=== PATIENT | female | born 1980 | race Caucasian/White ===

== ENCOUNTER 2021-01-21 03:22 | Outpatient (CLI) | payer BC, SELFPAY ==
[2021-01-21 12:09] LABS: HGB 13.6 g/dL (11.2-15.7); MCH 31.8 pg (27.0-33.0); MCHC 33.2 % (32.0-36.0); MCV 95.8 fL (80-95); MPV 10.4 fL (8.0-11.0); Platelet Count 166 10^3/uL (130-400); RBC 4.28 10^6/uL (3.93-5.22); RDW 12.2 % (11.7-14.6); RDW-SD 42.3 fL; WBC 3.55 10^3/uL (4.4-10.8)
[2021-01-21 12:34] LABS: Anion Gap 5.3 mmol/L (3-11); BUN 10 mg/dL (7-18); CO2 31.7 mmol/L (21.0-32.0); CREATININE 0.8 mg/dL (0.55-1.02); Calcium 9.2 mg/dL (8.5-10.1); Calculated LDL 90 mg/dL (<100); Chloride 103 mmol/L (98-107); Cholesterol 161 mg/dL (<200); Glucose 92 mg/dL (74-106); HDL Cholesterol 62 mg/dL (40-60); Sodium 140 mmol/L (136-145); TSH (W/Ref FT4) 2.54 uIU/mL (0.36-3.74); Triglyceride 49 mg/dL (<150)
== END 2021-01-21 03:23 | disposition home or self-care (01) ==
LOC: LOS 03:23
PROVIDERS: PCP Nurse Practitioner Family; Visit Provider Nurse Practitioner Family
DX: Z00.00 Encounter for general adult medical examination without abnormal findings (principal); D53.9 Nutritional anemia, unspecified
CPT/HCPCS: 36415; 80048; 80061; 85027; 84443

== ENCOUNTER 2021-05-03 10:13 | Outpatient (REF) | payer BC, SELFPAY ==
--- NOTE | 2021-05-03 09:25 | PAPFT_PTH ---
PATIENT: Elizabeth Elder LOC: [facility] U#:[id number] AGE/SX: 40/F ROOM: RE05/03/[address]: RIVKA Prater : 1980 BED: DIS: 05/03/2021 SPEC #: [id number] RECD: 05/03/21 12:52 STATUS: LALY MOTA #: [id number] RUFUS: 05/03/21 09:[address]: Kelli Manzano DEPT: [facility] Cytology RECD BY: Suma Andres ENTERED: 05/03/21 12:52 SP TYPE: PAPFT MARCO ANTONIO DR: RIVKA Dow Tissues: 1 - CX/ENDOCX FOR PAP SMEARS Procedures: PAP THIN PREP/UVM Screening HPV DNA PROBE Comments: [id number]
== END 2021-05-03 10:14 | disposition home or self-care (01) ==
LOC: LBN 10:13
PROVIDERS: PCP Nurse Practitioner Family; Visit Provider Nurse Practitioner Family
DX: Z12.4 Encounter for screening for malignant neoplasm of cervix (principal); Z11.51 Encounter for screening for human papillomavirus (HPV)
CPT/HCPCS: 88142; 87624

== ENCOUNTER 2021-05-13 19:06 | Outpatient (REF) | payer BC, SELFPAY ==
[2021-05-13 21:27] LABS: HGB 12.3 g/dL (11.2-15.7); MCH 31.3 pg (27.0-33.0); MCHC 33.2 % (32.0-36.0); MCV 94.1 fL (80-95); Nucleated RBC 0 %; Platelet Count 165 10^3/uL (130-400); RBC 3.93 10^6/uL (3.93-5.22); RDW 11.9 % (11.7-14.6); RDW-SD 42.1 fL; WBC 3.69 10^3/uL (4.4-10.8)
[2021-05-13 21:36] LABS: Lipase 5127 U/L (73-393)
[2021-05-13 21:49] LABS: Absolute Lymphocyte Count 0.85 10^3/uL (1.2-3.4); Absolute Monocyte Count 0.44 10^3/uL (0.1-0.8); Absolute Neutrophil Count 2.36 10^3/uL (1.2-6.7); Atypical Lymphocytes % 1
[2021-05-13 21:50] LABS: Absolute Eosinophil Count 0.04 10^3/uL (0.0-0.7); Diff Comment Manual Differential; RBC Morphology Normal
[2021-05-14 11:02] LABS: ALT 26 U/L (14-59); AST 23 U/L (15-37); Albumin 3.9 g/dL (3.4-5.0); Alkaline Phosphatase 50 U/L (46-116); Anion Gap 10.5 mmol/L (3-11); BUN 10 mg/dL (7-18); Bilirubin, Total 0.2 mg/dL (0.2-1.0); CO2 27.5 mmol/L (21.0-32.0); CREATININE 0.8 mg/dL (0.55-1.02); Calcium 8.5 mg/dL (8.5-10.1); Chloride 104 mmol/L (98-107); Glucose 116 mg/dL (74-106); Potassium 3.7 mmol/L (3.5-5.1); Sodium 142 mmol/L (136-145); Total Protein 6.8 g/dL (6.4-8.2)
== END 2021-05-13 19:07 | disposition home or self-care (01) ==
LOC: NCHCN 19:06
PROVIDERS: Physician Assistant; PCP Nurse Practitioner Family; Visit Provider Nurse Practitioner Family
DX: R10.9 Unspecified abdominal pain (principal)
CPT/HCPCS: 80053; 83690; 85025

== ENCOUNTER 2021-05-14 13:10 | Observation (INO) | payer BC, SELFPAY ==
[2021-05-14] VITALS (22 sets, daily range): BP systolic 108–130; BP diastolic 65–84; PULSE 75–94; RESP 15–18; TEMP 36.3–36.8; O2SAT 94–100
--- NOTE | 2021-05-14 13:15 | DI.CT_ITS ---
Exam(s) CT ABDOMEN PELVIS W EXAM: CT ABDOMEN PELVIS W INDICATION: epigastric pain, elevated lipase and possible cyst. COMPARISON: No exams were available for comparison TECHNIQUE: FINDINGS: CT examination of the abdomen and pelvis was performed with a bolus infusion of 100 cc of Omnipaque 3 50. Images obtained through the lung bases are unremarkable. The liver is unremarkable in appearance. Gallbladder and bile ducts are CT normal. There is a small peripancreatic fluid collection and fat edema consistent with pancreatitis. The holt creatic tail contains a multi-septated predominantly fluid attenuation mass consistent with a walled- off necrotic area of the pancreas. There is small quantity of free fluid in the pelvis. No addition al fluid collections in the peritoneal cavity. Pancreatic duct is nondilated. Mild wall thickening o f this stomach is noted presumably due to adjacent inflammatory process. Spleen is unremarkable in appearance. Adrenals appear normal. The kidneys are unremarkable with no evidence of hydronephrosis, nephrolithiasis, or renal mass.. Ur inary bladder unremarkable. Abdominal aorta is of normal diameter and no major vascular abnormality is seen. No abdominal wall hernia. No abdominal or pelvic adenopathy. WOOL BRUSHER structures appear intact. Appendix is normal. No evidence of diverticulitis or bowel obstruction. IMPRESSION: There is a multi septated predominantly fluid content mass of the tail of the pancreas, in the settin g of reported subacute pancreatitis this is consistent with walled-off necrosis . Other etiologies including neoplastic disease not absolutely excluded, follow-up CT recommended follo wing treatment. RADIATION DOSE DELIVERED: 909.71mGy.cm Total DLP 909.71mGy.cm Total DLP RADIATION OPTIMIZATION: All CT scans at this facility use at least one of these dose optimization te chniques: automated exposure control; mA and/or kV adjustment per patient size (includes targeted exa ms where dose is matched to clinical indication); or iterative reconstruction.
[2021-05-14 13:37] LABS: Abs Immature Grans 0.01 10^3/uL (0.0-0.06); Absolute Basophil Count 0.02 10^3/uL (0.0-0.2); Absolute Eosinophil Count 0.03 10^3/uL (0.0-0.7); Absolute Lymphocyte Count 1.08 10^3/uL (1.2-3.4); Absolute Monocyte Count 0.37 10^3/uL (0.1-0.8); Absolute Neutrophil Count 3.86 10^3/uL (1.2-6.7); Basophils % 0.4; Eosinophils % 0.6; HCT 40.3 % (36.0-46.0); HGB 13.2 g/dL (11.2-15.7); Immature Grans % 0.2; Lymphocytes % 20.1; MCH 30.8 pg (27.0-33.0); MCHC 32.8 % (32.0-36.0); MCV 94.2 fL (80-95); MPV 9.7 fL (8.0-11.0); Monocytes % 6.9; Neutrophils % 71.8; Nucleated RBC 0 %; Platelet Count 147 10^3/uL (130-400); RBC 4.28 10^6/uL (3.93-5.22); RDW 11.9 % (11.7-14.6); RDW-SD 41.2 fL; WBC 5.37 10^3/uL (4.4-10.8)
[2021-05-14] MEDS: Lactated Ringers 1,000 ML 1000 ML IV (13:43)
[2021-05-14 13:44] LABS: Bilirubin Negative (Negative); Blood Trace-lysed (Negative); Clarity Clear (Clear); Glucose Negative (Negative); Ketones 40 mg/dL (Negative); Leukocyte Esterase Negative (Negative); Nitrite Negative (Negative); Urobilinogen 0.2 EU/dL (Up TO 0.2); pH 5.5 (5-8)
[2021-05-14 13:49] LABS: ALT 27 U/L (14-59); AST 26 U/L (15-37); Albumin 4.1 g/dL (3.4-5.0); Alkaline Phosphatase 48 U/L (46-116); Anion Gap 10.9 mmol/L (3-11); BUN 8 mg/dL (7-18); Bilirubin, Total 0.3 mg/dL (0.2-1.0); CO2 28.1 mmol/L (21.0-32.0); CREATININE 0.8 mg/dL (0.55-1.02); Calcium 8.9 mg/dL (8.5-10.1); Chloride 103 mmol/L (98-107); Glucose 97 mg/dL (74-106); Potassium 3.6 mmol/L (3.5-5.1); Sodium 142 mmol/L (136-145); Total Protein 7.7 g/dL (6.4-8.2)
[2021-05-14 13:52] LABS: Diff Comment Agrees w/ Instrument; RBC Morphology Normal
[2021-05-14 13:53] LABS: Bacteria Moderate HPF (Negative); C & S Indicated? No/Sq. Contamination; Casts Negative LPF (Negative); Crystals Negative HPF (Negative); Epithelial Cells Moderate HPF (Negative); Mucus Negative (Negative); RBC 0-2 HPF (0-2)
[2021-05-14 13:54] LABS: Lipase 5164 U/L (73-393)
[2021-05-14 13:58] LABS: Amylase 1446 U/L (25-115)
[2021-05-14] MEDS: Normal Saline - Diluent 50 ML VIAL IV (14:04)
[2021-05-14] MEDS: Omnipaque 350 MG/ML 100 ML BTL IJ (14:04)
--- NOTE | 2021-05-14 15:58 | W.ED.GENAD ---
Discharge Plan Disposition Patient Disposition: [facility] INPATIENT Condition: Stable Discharge Details Chief Complaint: Abd Prob Clinical Impression: Acute pancreatitis Primary Care Provider: Ursula Calhoun ED Provider: Suma Lazcano Home Meds and New Rx's Prescriptions: No Action prenat.vits,tiesha,ncj-mgry-tiend Tablet 1 tab PO DAILY RF: 0 Medical Decision Making LFTs unremarkable Elevated lipase, 5100, elevated amylase, 2100, will give 2 L of LR Patient denies any chest pain or shortness of breath. Her pain radiates through to her back, she has essentially nontoxic, she is not tachycardic and her blood pressure stable Case is discussed with Dr. Murillo, surgery regarding her CT findings showing a possible pancreatic mass and they recommend consulting with [facility] surgery out of concern for mass, I spoke with Dr. García, surgeon on-call who recommends IV hydration and reassessment by gastroenterology at [facility] in 1 week He thinks perfectly reasonable to admit patient to the hospital and reassessment in 1 week Patient is agreeable to plan Differential Diagnosis Differential Diagnosis: Pancreatic pseudocyst, pancreatic cancer, choledocholithiasis, pancreatitis Medical Records Medical records reviewed: Yes I reviewed the patient's medical records. Lab Data Lab results reviewed: Yes I reviewed the patient's lab results. HPI General Mode of arrival: ambulatory. Date/Time Provider Initiated Documentation: 05/14/21 13:15. Limitations to Documentation: no limitations. Information obtained by: patient. HPI Narrative: 40-year-old female presents with report of epigastric pain intermittently for the past 2 months. She has had 3 episodes, this being her third. States that is interesting in that is precipitated by what she thinks is a gastroenteritis with her family had. She denies any shortness of breath, cough, or fever. She states actually the pain is mildly improved today. She denies any nausea or vomiting for the past several days. She denies any chest pain. She denies any chance of . She denies any history of alcohol use. She denies any medications. She is otherwise reportedly healthy. Prior to this past 2 months she does not have any symptoms in the past reportedly. She describes the pain as sharp and states it radiates through to her back. She denies any additional pain. She denies known exacerbating or alleviating factors. This episode is lasted for approximately 2. Related Data Home Medications Medication Instructions Recorded Confirmed prenat.vits,tiesha,ujt-ghrk-jdqfe 1 tab PO DAILY 01/18/21 05/14/21 Allergies Allergy/AdvReac Type Severity Reaction Status Date / Time BIRTHCONTROL PILL Allergy EYE Uncoded 05/14/21 13:20 IRRITATION PEACHES Allergy Uncoded 05/14/21 13:20 HIVES/SWELLING/BREATHING ISSUES General Stated Complaint: Abd Prob ALEC: 3 Review of Systems Narrative: Review of systems obtained x7 and negative aside from where indicated in HPI All systems reviewed & are unremarkable except as noted in HPI and below PFS Medical History Macrocytic anemia Surgical History S/P excision of fibroadenoma of breast (~1998) Right breast Family History Mother Hypertension Father No problems noted. Brother Asthma Brother No problems noted. Son Cyclic vomiting syndrome Daughter No problems noted. Maternal Grandfather Heart disease Maternal Grandmother Breast cancer Macular degeneration Paternal Grandfather Pancreatic cancer Diabetes Paternal Grandmother No problems noted. Social History Smoking/Tobacco Use Status: Never Smoking risk assessment performed?: Yes Alcohol Intake: never Drug use: Never Substance use type: does not use Do you feel safe at home: Yes Do you feel safe in your relationship?: Yes Female Reproductive History Menstrual control method: condoms History History 2 Para 2 Hx # Term Pregnancies Multiple births Hx # Pregnancies Ectopic pregnancies AB induced Hx Number of Living Children 2 AB spontaneous Exam Const General: comfortable and no acute distress Eyes Pupils: PERRL Resp Effort & Inspection: normal respiratory effort Auscultation: clear to auscultation bilaterally Cardio Rate: regular rate Rhythm: regular rhythm GI Other: mild left upper quadrant tenderness on exam No rebound or guarding Skin General skin exam: no rashes or lesions noted Neuro General: patient alert and patient oriented x3 Course Vital Signs Vital signs: Vital Signs Temperature 36.4 C L 05/14/21 13:16 Pulse 79 05/14/21 13:16 Respiratory Rate 15 05/14/21 13:16 Blood Pressure 130/84 05/14/21 13:16 Pulse Oximetry 100 05/14/21 13:16 Temperature 36.4 C L 05/14/21 13:16 Temperature Source Temporal Artery Scan 05/14/21 13:16 Pulse 82 05/14/21 15:00 Respiratory Rate 15 05/14/21 13:16 Respiratory Effort 05/14/21 13:20 Blood Pressure 120/65 05/14/21 15:00 Blood Pressure Mean 76 05/14/21 15:00 Blood Pressure Position Supine 05/14/21 13:16 Pulse Oximetry 100 05/14/21 15:30 Oxygen Delivery Method Room Air 05/14/21 13:16 Oxygen Flow Rate 0 05/14/21 13:16 Pain Level 2 05/14/21 13:20 Lab/Test Results Lab/Test Results: Laboratory Tests Range/Units 05/14/21 05/14/21 05/14/21 13:25 13:25 13:25 WBC (4.4-10.8) 10^3/uL 5.37 D RBC (3.93-5.22) 10^6/uL 4.28 Hgb (11.2-15.7) g/dL 13.2 Hct (36.0-46.0) % 40.3 MCV (80-95) fL 94.2 MCH (27.0-33.0) pg 30.8 MCHC (32.0-36.0) % 32.8 RDW (11.7-14.6) % 11.9 Plt Count (130-400) 10^3/uL 147 MPV (8.0-11.0) fL 9.7 Immature Gran % 0.2 Neutrophils % 71.8 Lymphocytes % 20.1 Monocytes % 6.9 Eosinophils % 0.6 Basophils % 0.4 Nucleated RBC % % 0 Absolute Neutrophils (1.2-6.7) 10^3/uL 3.86 Absolute Lymphocytes (1.2-3.4) 10^3/uL 1.08 L Absolute Monocytes (0.1-0.8) 10^3/uL 0.37 Absolute Eosinophils (0.0-0.7) 10^3/uL 0.03 Absolute Basophils (0.0-0.2) 10^3/uL 0.02 RBC Morphology Normal Sodium (136-145) mmol/L 142 Potassium (3.5-5.1) mmol/L 3.6 Chloride (98-107) mmol/L 103 Carbon Dioxide (21.0-32.0) mmol/L 28.1 Anion Gap (3-11) mmol/L 10.9 BUN (7-18) mg/dL 8 Creatinine (0.55-1.02) mg/dL 0.8 Estimated GFR/1.73 m2 (mL/min/1.73m2) >= 60.00 Glucose (74-106) mg/dL 97 Calcium (8.5-10.1) mg/dL 8.9 Total Bilirubin (0.2-1.0) mg/dL 0.3 AST (15-37) U/L 26 ALT (14-59) U/L 27 Alkaline Phosphatase (46-116) U/L 48 Total Protein (6.4-8.2) g/dL 7.7 Albumin (3.4-5.0) g/dL 4.1 Amylase (25-115) U/L 1446 H Lipase (73-393) U/L 5164 H Urine Color (Yellow) Urine Clarity (Clear) Urine pH (5-8) Ur Specific [place] (1.005-1.025) Urine Protein (Negative) mg/dL Urine Ketones (Negative) mg/dL Urine Blood (Negative) Urine Nitrite (Negative) Urine Bilirubin (Negative) Urine Urobilinogen (Up TO 0.2) EU/dL Ur Leukocyte Esterase (Negative) Urine RBC (0-2) HPF Urine WBC (0-5) HPF Ur Epithelial Cells (Negative) HPF Urine Crystals (Negative) HPF Urine Bacteria (Negative) HPF Urine Casts (Negative) LPF Urine Mucus (Negative) Ur Culture Indicated? Urine Glucose (Negative) mg/dL Range/Units 05/14/21 13:35 WBC (4.4-10.8) 10^3/uL RBC (3.93-5.22) 10^6/uL Hgb (11.2-15.7) g/dL Hct (36.0-46.0) % MCV (80-95) fL MCH (27.0-33.0) pg MCHC (32.0-36.0) % RDW (11.7-14.6) % Plt Count (130-400) 10^3/uL MPV (8.0-11.0) fL Immature Gran % Neutrophils % Lymphocytes % Monocytes % Eosinophils % Basophils % Nucleated RBC % % Absolute Neutrophils (1.2-6.7) 10^3/uL Absolute Lymphocytes (1.2-3.4) 10^3/uL Absolute Monocytes (0.1-0.8) 10^3/uL Absolute Eosinophils (0.0-0.7) 10^3/uL Absolute Basophils (0.0-0.2) 10^3/uL RBC Morphology Sodium (136-145) mmol/L Potassium (3.5-5.1) mmol/L Chloride (98-107) mmol/L Carbon Dioxide (21.0-32.0) mmol/L Anion Gap (3-11) mmol/L BUN (7-18) mg/dL Creatinine (0.55-1.02) mg/dL Estimated GFR/1.73 m2 (mL/min/1.73m2) Glucose (74-106) mg/dL Calcium (8.5-10.1) mg/dL Total Bilirubin (0.2-1.0) mg/dL AST (15-37) U/L ALT (14-59) U/L Alkaline Phosphatase (46-116) U/L Total Protein (6.4-8.2) g/dL Albumin (3.4-5.0) g/dL Amylase (25-115) U/L Lipase (73-393) U/L Urine Color (Yellow) Yellow Urine Clarity (Clear) Clear Urine pH (5-8) 5.5 Ur Specific [place] (1.005-1.025) 1.020 Urine Protein (Negative) mg/dL Negative Urine Ketones (Negative) mg/dL 40 H Urine Blood (Negative) Trace-lysed H Urine Nitrite (Negative) Negative Urine Bilirubin (Negative) Negative Urine Urobilinogen (Up TO 0.2) EU/dL 0.2 Ur Leukocyte Esterase (Negative) Negative Urine RBC (0-2) HPF 0-2 Urine WBC (0-5) HPF 3-5 Ur Epithelial Cells (Negative) HPF Moderate Urine Crystals (Negative) HPF Negative Urine Bacteria (Negative) HPF Moderate Urine Casts (Negative) LPF Negative Urine Mucus (Negative) Negative Ur Culture Indicated? No/Sq. Contamination Urine Glucose (Negative) mg/dL Negative POC- Test(urine) Negative Critical Care Time Critical Care Time Attestation: IV admission, l
[2021-05-14 16:10] LABS: Source Nasal/Nares
[2021-05-14 17:07] LABS: COVID-19 PCR Negative (Negative)
[2021-05-14] MEDS: Normal Saline 1,000 ML 100 ML IV (18:20)
--- NOTE | 2021-05-14 22:08 | HPE_ITS ---
Date of service: 05/14/21 Time of Service: 22:09 Assessment and Plan Assessment and plan (1) Acute pancreatitis: Status: Acute Assessment and plan: CT scan shows a clear abnormality of the tail of the pancreas. By history there is an association with her coronavirus immunization. I will recheck her lipase in the morning but I think we need to talk to gastroenterology about her to determine next steps. It would be advisable to file a report because of the time relationship to her Covid vaccines. I doubt if vaccines are related to her illness. She has very few symptoms now. History of Present Illness History of Present Illness Chief Complaint: Pancreatitis Narrative: This 40-year-old female has had 3 episodes of severe abdominal pain. The first 1 occurred in March of this year and lasted for about 8 hours. It was followed by about 2 days of mild abdominal soreness. This occurred fairly soon after her first coronavirus vaccine dose. In mid April of this year she had another episode that was similar to the episode in March it was less severe. This also followed her second dose of the Covid vaccine. There has been a diarrhea illness in her family that began about 12 days ago with her 9-year-old son then her daughter and then she and her . Son developed diarrhea about 6 days ago and it improved but she developed worsening abdominal pain yesterday and went to the urgent care clinic where labs were done. They reported her labs today at lipase of 5000 and she was sent for an ultrasound. At the ultrasound showed an abnormality near the tail of her pancreas she was sent to the emergency department where she was seen and had repeat labs and a CT scan. Repeat labs showed her lipase to still be above [address] scan showed an abnormality of the tail of her pancreas. The situation was discussed with general surgery doctor on-call at [facility] he recommended treating her pancreatitis and follow-up with gastroenterology. Her grandfather of pancreatic cancer when he was about 70 years old and there is no other family history of pancreatic disease. She states she had a number of lab tests done through her doctor's office earlier this year and thinks her lab tests were normal. She is uncertain about whether she had lipid levels done. I just reviewed her cholesterol level at 160 and her triglycerides were 90 in January of this year. She does not use alcohol and does not use tobacco. She says today her pain is about a 1 out of 10. She is allergic to peaches which gives her hives and control pills caused her difficulty with her vision. She has had no previous surgeries except for breast cyst removal years ago. Review of Systems Constitutional Constitutional: Denies body ache(s), Denies chills and Denies fever(s) ENT Ears, Nose, Mouth, and Throat: Denies dysphagia Cardiovascular Cardiovascular: Denies chest pain and Denies palpitations Respiratory Respiratory: Denies chest congestion and Denies cough Gastrointestinal Gastrointestinal: Reports abdominal pain (This is in the epigastric area and radiates up to her chest.), Denies dysphagia and Reports diarrhea (This has improved over the last few days. Her last bowel movement 2 days a) Endocrine Endocrine: Denies palpitations PFSH Medical History Macrocytic anemia Surgical History S/P excision of fibroadenoma of breast (~1998) Right breast Family History Mother Hypertension Father No problems noted. Brother Asthma Brother No problems noted. Son Cyclic vomiting syndrome Daughter No problems noted. Maternal Grandfather Heart disease Maternal Grandmother Breast cancer Macular degeneration Paternal Grandfather Pancreatic cancer Diabetes Paternal Grandmother No problems noted. Social History Smoking/Tobacco Use Status: Never Smoking risk assessment performed?: Yes Alcohol Intake: never Drug use: Never Substance use type: does not use Do you feel safe at home: Yes Do you feel safe in your relationship?: Yes Female Reproductive History Menstrual control method: condoms History History 2 Para 2 Hx # Term Pregnancies Multiple births Hx # Pregnancies Ectopic pregnancies AB induced Hx Number of Living Children 2 AB spontaneous Meds Allergies and Home Medications Allergies Allergy/AdvReac Type Severity Reaction Status Date / Time BIRTHCONTROL PILL Allergy EYE Uncoded 05/14/21 13:20 IRRITATION PEACHES Allergy Uncoded 05/14/21 13:20 HIVES/SWELLING/BREATHING ISSUES Home Medications Medication Instructions Recorded Confirmed Type prenat.vits,tiesha,wgh-engb-hkioc 1 tab PO DAILY 01/18/21 05/14/21 History Exam Const General: cooperative, healthy appearing, comfortable, no acute distress and well developed Orientation: alert, awake and oriented x3 HENMT Head: normal to inspection and normocephalic Neck Neck: normal visual inspection and no lymphadenopathy Resp Effort & Inspection: normal respiratory effort, able to speak in complete sentences and no tracheal deviation Cardio Jugular venous pressure: no JVD Rate: regular rate Heart Sounds: no gallops, no murmurs and no rubs GI Inspection: normal to inspection, no abdominal wall ecchymosis and non-distended Palpation: soft, no hepatosplenomegaly and tender Other: There is a slight fullness of the left upper quadrant that is slightly tender. Skin General skin exam: no jaundice Neuro Cognition: normal cognition Results Labs Result diagrams: 05/14/21 13:25 05/14/21 13:25 Labs: Laboratory Results - last 24 hr 05/14/21 05/14/21 05/14/21 13:25 13:25 13:25 WBC 5.37 D RBC 4.28 Hgb 13.2 Hct 40.3 MCV 94.2 MCH 30.8 MCHC 32.8 RDW 11.9 Plt Count 147 MPV 9.7 Immature Gran % 0.2 Neutrophils % 71.8 Lymphocytes % 20.1 Monocytes % 6.9 Eosinophils % 0.6 Basophils % 0.4 Nucleated RBC % 0 Absolute Neutrophils 3.86 Absolute Lymphocytes 1.08 L Absolute Monocytes 0.37 Absolute Eosinophils 0.03 Absolute Basophils 0.02 RBC Morphology Normal Sodium 142 Potassium 3.6 Chloride 103 Carbon Dioxide 28.1 Anion Gap 10.9 BUN 8 Creatinine 0.8 Estimated GFR/1.73 m2 >= 60.00 Glucose 97 Calcium 8.9 Total Bilirubin 0.3 AST 26 ALT 27 Alkaline Phosphatase 48 Total Protein 7.7 Albumin 4.1 Amylase 1446 H Lipase 5164 H Urine Color Urine Clarity Urine pH Ur Specific [place] Urine Protein Urine Ketones Urine Blood Urine Nitrite Urine Bilirubin Urine Urobilinogen Ur Leukocyte Esterase Urine RBC Urine WBC Ur Epithelial Cells Urine Crystals Urine Bacteria Urine Casts Urine Mucus Ur Culture Indicated? Urine Glucose COVID-19 Source SARS-CoV-2 (PCR) 05/14/21 05/14/21 13:35 16:00 WBC RBC Hgb Hct MCV MCH MCHC RDW Plt Count MPV Immature Gran % Neutrophils % Lymphocytes % Monocytes % Eosinophils % Basophils % Nucleated RBC % Absolute Neutrophils Absolute Lymphocytes Absolute Monocytes Absolute Eosinophils Absolute Basophils RBC Morphology Sodium Potassium Chloride Carbon Dioxide Anion Gap BUN Creatinine Estimated GFR/1.73 m2 Glucose Calcium Total Bilirubin AST ALT Alkaline Phosphatase Total Protein Albumin Amylase Lipase Urine Color Yellow Urine Clarity Clear Urine pH 5.5 Ur Specific [place] 1.020 Urine Protein Negative Urine Ketones 40 H Urine Blood Trace-lysed H Urine Nitrite Negative Urine Bilirubin Negative Urine Urobilinogen 0.2 Ur Leukocyte Esterase Negative Urine RBC 0-2 Urine WBC 3-5 Ur Epithelial Cells Moderate Urine Crystals Negative Urine Bacteria Moderate Urine Casts Negative Urine Mucus Negative Ur Culture Indicated? No/Sq. Contamination Urine Glucose Negative COVID-19 Source Nasal/Nares SARS-CoV-2 (PCR) Negative Last Vital Signs Temp 36.8 C 05/14/21 16:33 Pulse 75 05/14/21 16:33 Resp 16 05/14/21 16:33 BP 119/69 05/14/21 16:33 Pulse Ox 100 05/14/21 16:35
[2021-05-15] MEDS: Normal Saline 1,000 ML 100 ML IV (03:49)
[2021-05-15 06:59] LABS: Abs Immature Grans 0.01 10^3/uL (0.0-0.06); HCT 32.8 % (36.0-46.0); MCH 31.2 pg (27.0-33.0); MCHC 33.5 % (32.0-36.0); MCV 92.9 fL (80-95); MPV 9.8 fL (8.0-11.0); Nucleated RBC 0 %; Platelet Count 126 10^3/uL (130-400); RBC 3.53 10^6/uL (3.93-5.22); RDW 11.9 % (11.7-14.6); RDW-SD 40.6 fL
[2021-05-15 07:24] LABS: Absolute Basophil Count 0.04 10^3/uL (0.0-0.2); Absolute Eosinophil Count 0.04 10^3/uL (0.0-0.7); Absolute Lymphocyte Count 0.97 10^3/uL (1.2-3.4); Absolute Monocyte Count 0.21 10^3/uL (0.1-0.8); Absolute Neutrophil Count 2.94 10^3/uL (1.2-6.7); Atypical Lymphocytes % 3
[2021-05-15 07:25] LABS: ALT 27 U/L (14-59); AST 25 U/L (15-37); Alkaline Phosphatase 35 U/L (46-116); Anion Gap 8.9 mmol/L (3-11); BUN 8 mg/dL (7-18); Bilirubin, Total 0.3 mg/dL (0.2-1.0); CO2 25.1 mmol/L (21.0-32.0); CREATININE 0.7 mg/dL (0.55-1.02); Calcium 8.1 mg/dL (8.5-10.1); Chloride 108 mmol/L (98-107); Diff Comment Manual Differential; Glucose 67 mg/dL (74-106); Potassium 3.7 mmol/L (3.5-5.1); RBC Morphology Normal; Sodium 142 mmol/L (136-145); Total Protein 5.9 g/dL (6.4-8.2)
[2021-05-15 07:42] LABS: Lipase 2173 U/L (73-393)
[2021-05-15 08:16] VITALS: BP 116/72; PULSE 83; RESP 16; TEMP 36.8; O2SAT 100
--- NOTE | 2021-05-15 08:18 | PDOC.CMIN ---
- If Service Date Differs Date of service: 05/15/21 Time of Service: 08:25 Care Management Initial Assess REASON FOR HOSPITALIZATION:: Pancreatitis PAST MEDICAL HISTORY/PAST SURGICAL HISTORY:: Macrocytic anemia, excision of fibroadenoma of breast PREVIOUS FUNCTIONAL STATUS/SOCIAL/FAMILY SUPPORTS:: Resides in [place] with , Hieu and their two minor children. 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 CURRENT FUNCTIONAL STATUS:: Elizabeth is up independently in her room, she is pleasant in interaction and per MD, aware of concerns central to possible diagnosis and [facility] follow up plan. Anticipate she will return home tomorrow or Monday. ADVANCE DIRECTIVES:: On file at [facility]: Hieu as agent, Almita as alternate. Has patient been provided with info about the portal/API?: Yes Did the patient sign up for the portal?: Yes (previously) CODE STATUS:: Full Code INSURANCE COVERAGE / FINANCIAL ISSUES:: BC/BS Other CURRENT HOME/COMMUNITY SERVICES/EQUIPMENT:: None currently. PRIMARY CARE PHYSICIAN:: Ursula Calhoun POTENTIAL DISCHARGE NEEDS:: [facility] follow up. PATIENT/FAMILY EDUCATION NEEDS:: Review discharge instructions, discuss Ask Me Three. ANTICIPATED BARRIERS TO DISCHARGE:: None identified. TRANSPORTATION:: Via private vehicle with her , Hieu. PLAN:: Elizabeth will return home when ready per MD. She will follow up with her PCP and plan of care as prescribed including outpatient follow up with [facility]. She will transport via private vehicle with her , Hieu.
[2021-05-15] MEDS: Dextrose 50%-Water 25 GM/50 ML SYR IVP (08:20)
[2021-05-15] MEDS: IMIPENEM/CILASTATIN 500 MG in Normal Saline 100 ML 200 MG IVPB (08:20)
[2021-05-15] MEDS: Ondansetron 4 MG/2 ML VIAL IVP (09:05)
[2021-05-15] MEDS: Normal Saline Flush 10 ML SYR IVP ×2 (09:05→10:44)
[2021-05-15] MEDS: DEXTROSE 5%-0.9% SALINE 1,000 ML 150 ML IV ×3 (09:05→22:29)
[2021-05-15] MEDS: Pantoprazole 40 MG VIAL IVP (10:44)
--- NOTE | 2021-05-15 15:08 | W.PM.PROGNOT ---
Date of Service Date of service: 05/15/21 Time of Service: 15:09 Assessment and Plan Assessment and plan (1) Acute pancreatitis: Status: Acute Assessment and plan: Clinically better. Trial clears and advance as tolerate.d Discussed with [facility]: no plans for transfer/procedures on this admission. Will need EUS on outpatient follow up in 1-2 weeks. ? consequence of Moderna mRNA vaccine (2) Pancreatic mass: Status: Acute Assessment and plan: As above Also concern for malignancy (3) Hypoglycemia: Status: Resolved Assessment and plan: While NPO. D5 added to fluids and Now permitted a diet. (4) DVT prophylaxis: Status: Acute Assessment and plan: Patient is ambulatory - not requiring DVT ppx due to age and ambulatory status (5) Discharge planning issues: Status: Acute Assessment and plan: Full code Possible discharge home tomorrow will need outpatient follow up with [facility] Subjective Subjective Interval history since last seen: Ms Elder feels better today. She was nauseated this morning, no vomiting - associated with a low blood sugar. Denies dizziness, chest pain, shortness of breath, although it is difficult to take a deep breath. Case discussed with [facility]: no role for abx at this time as afebrile and no obvious signs of infection. Will need outpatient follow up for endoscopic ultrasound in 1-2 weeks, which is being arranged on their end. Exam Narrative Exam Narrative: General: Pleasant female, not in acute distress, A&Ox3, appears comfortable HEENT: EOMI, MMM Heart: RRR, no m/r/g Lungs: CTAB Abdomen: soft, mildly tender in LUQ, nondistended Extremities: no edema BLE's Objective Last Vital Signs Temp 36.8 C 05/15/21 08:16 Pulse 83 05/15/21 08:16 Resp 16 05/15/21 08:16 BP 116/72 05/15/21 08:16 Pulse Ox 100 05/15/21 08:16 Laboratory Results - last 24 hr 05/14/21 05/15/21 05/15/21 16:00 06:45 06:45 WBC 4.20 L RBC 3.53 L Hgb 11.0 L D Hct 32.8 L MCV 92.9 MCH 31.2 MCHC 33.5 RDW 11.9 Plt Count 126 L MPV 9.8 Immature Gran % 0.0 Neutrophils % 70.0 Lymphocytes % 20.0 Atypical Lymphs % 3 Monocytes % 5.0 Eosinophils % 1.0 Basophils % 1.0 Nucleated RBC % 0 Absolute Neutrophils 2.94 Absolute Lymphocytes 0.97 L Absolute Monocytes 0.21 Absolute Eosinophils 0.04 Absolute Basophils 0.04 RBC Morphology Normal Sodium 142 Potassium 3.7 Chloride 108 H Carbon Dioxide 25.1 Anion Gap 8.9 BUN 8 Creatinine 0.7 Estimated GFR/1.73 m2 >= 60.00 Glucose 67 L Calcium 8.1 L Total Bilirubin 0.3 AST 25 ALT 27 Alkaline Phosphatase 35 L Total Protein 5.9 L Albumin 3.0 L Lipase 2173 H COVID-19 Source Nasal/Nares SARS-CoV-2 (PCR) Negative
[2021-05-15 16:10] VITALS: BP 102/65; PULSE 69; RESP 18; TEMP 36.7; O2SAT 100
[2021-05-15 20:07] VITALS: BP 118/81; PULSE 70; RESP 20; TEMP 36.7; O2SAT 100
[2021-05-15] MEDS: Melatonin 3 MG TAB PO (22:05)
[2021-05-15 23:31] VITALS: BP 93/56; PULSE 82; RESP 20; TEMP 36.4; O2SAT 97
[2021-05-16] MEDS: DEXTROSE 5%-0.9% SALINE 1,000 ML 150 ML IV (05:05)
[2021-05-16 06:21] VITALS: BP 105/71; PULSE 79; RESP 18; TEMP 37.2; O2SAT 98
[2021-05-16 07:10] LABS: Absolute Basophil Count 0.02 10^3/uL (0.0-0.2); Absolute Eosinophil Count 0.06 10^3/uL (0.0-0.7); Absolute Lymphocyte Count 0.83 10^3/uL (1.2-3.4); Absolute Monocyte Count 0.25 10^3/uL (0.1-0.8); Absolute Neutrophil Count 1.49 10^3/uL (1.2-6.7); Basophils % 0.8; Eosinophils % 2.3; HCT 29.8 % (36.0-46.0); HGB 9.7 g/dL (11.2-15.7); Lymphocytes % 31.3; MCH 30.8 pg (27.0-33.0); MCHC 32.6 % (32.0-36.0); MCV 94.6 fL (80-95); MPV 10.1 fL (8.0-11.0); Monocytes % 9.4; Neutrophils % 56.2; Nucleated RBC 0 %; Platelet Count 111 10^3/uL (130-400); RBC 3.15 10^6/uL (3.93-5.22); RDW 12.2 % (11.7-14.6)
[2021-05-16 07:28] LABS: Anion Gap 5.4 mmol/L (3-11); BUN 4 mg/dL (7-18); CO2 27.6 mmol/L (21.0-32.0); CREATININE 0.7 mg/dL (0.55-1.02); Calcium 7.8 mg/dL (8.5-10.1); Chloride 111 mmol/L (98-107); Glucose 114 mg/dL (74-106); Lipase 563 U/L (73-393); Magnesium 1.9 mg/dL (1.8-2.4); Potassium 3.5 mmol/L (3.5-5.1); Sodium 144 mmol/L (136-145)
[2021-05-16 07:32] LABS: ALT 24 U/L (14-59); AST 20 U/L (15-37); Albumin 2.6 g/dL (3.4-5.0); Alkaline Phosphatase 30 U/L (46-116); Bilirubin, Direct 0.1 mg/dL (0.0-0.2); Bilirubin, Total 0.3 mg/dL (0.2-1.0); Total Protein 5.4 g/dL (6.4-8.2)
[2021-05-16 07:35] LABS: WBC 2.65 10^3/uL (4.4-10.8)
[2021-05-16 08:00] VITALS: BP 110/74; PULSE 69; RESP 16; TEMP 36.8; O2SAT 100
[2021-05-16] MEDS: Pantoprazole 40 MG VIAL IVP (09:17)
[2021-05-16] MEDS: Normal Saline Flush 10 ML SYR IVP (09:18)
[2021-05-16] MEDS: Acetaminophen 325 MG TAB 650 MG PO (09:18)
[2021-05-16 11:30] VITALS: BP 115/72; PULSE 74; RESP 16; TEMP 36.6; O2SAT 98
--- NOTE | 2021-05-16 11:33 | CMPROGNOTE_ITS ---
- If Service Date Differs Date of service: 05/16/21 Time of Service: 11:33 Care Management Progress Note S/O: A: Elizabeth is a 40 year old womann admitted on 05/14/21 with acute pancreatitis P:Elizabeth will return home when ready per MD. She will follow up with her PCP and plan of care as prescribed including outpatient follow up with [facility]. She will transport via private vehicle with her , Hieu.
[2021-05-16] MEDS: Normal Saline 1,000 ML 150 ML IV (14:03)
--- NOTE | 2021-05-16 14:19 | W.PM.DS.N ---
Date of service: 05/16/21 Time of Service: 14:19 DS: Diagnosis Discharge Diagnosis (1) Acute pancreatitis: Status: Acute (2) Pancreatic mass: Status: Acute (3) Adverse effect of vaccine containing severe acute respiratory syndrome coronavirus 2 (SARS-CoV-2) antigen or severe acute respiratory syndrome coronavirus 2 (SARS-CoV-2) mRNA: Status: Suspected (4) Hypoglycemia: Status: Resolved (5) COVID-19 ruled out by laboratory testing: Status: Ruled-out Discharge Plan Disposition Patient Disposition: HOME Condition: Stable Discharge Details Reason For Visit: Pancreatitis Admit Date/Time: 05/14/21 15:53 Admit Provider: Jayden Hurtado Attending Provider: Jayden Hurtado Primary Care Provider: rUsula Calhoun Hospital Course Hospital Course: Ms Elder is a 40 year old female with PMHx of macrocytic anemia who was observed on [facility] hospitalist service from 05/14/21 until 05/16/21 for acute pancreatitis and a mass in her pancreatic tail. The patient first experienced severe abdominal pain 1 1/2 weeks following her first dose of Moderna COVID-19 vaccine. This was self limited, but was severe and lasted 8 hrs. The patient had another episode of abdominal pain, better than the original, 1 1/2 weeks after her 2nd dose of the vaccine. This, too, was self limited. The patient and family did experience a gastro-intestinal illness in the last weeks, but while the patient's nausea and vomiting had resolved, her abdominal pain persisted, bringing her to an urgent care on 05/13/21 with bloodwork and ultrasound being ordered as a result of that appointment. Her lipase was 5127, and ultrasound revealed a complex fluid collection (8 cm in diameter) in her pancreatic tail. This warranted a referral to ED, where CT abdomen/pelvis revealed a complex predominantly fluid-filled mass in the tail of the pancreas, c/w walled-off necrosis, neoplastic disease not excluded. The patient does not drink alcohol, does not have evidence of gallstones, has a normal appearance of her pancreatic duct, and has normal triglycerides. [facility] general surgery and GI were both consulted, recommending treating this as regular pancreatitis with bowel rest, IVF, and referral for outpatient GI follow up for EUS in 1-2 weeks. The patient did briefly get IV antibiotics given pancreatic necrosis, but because she did not have signs of actual infection (fever/leucocytosis), [facility] did not feel there was a role for antibiotics at this time. Pancreatits is listed as a possible complication of mRNA vaccines, though rare. If malignancy is definitively ruled out, the patient's disease could possibly be attributed to an adverse reaction from an mRNA vaccine, which should be appropriately reported. The patient's diet was gradually advanced as her pain improved. She had one episode of hypoglycemia while NPO, which was treated with addition of dextrose to her IVF, but this did not recur since initiation of a diet. She is tolerating a soft low fat bland diet and is instructed to continue this until she follows up with [facility] GI. She is medically stable for discharge home today with follow up with her PCP and [facility] GI. Care for patient as well as completion of her discharge summary on day of discharge took 40 minutes. Home Meds and New Rx's Prescriptions: Continued prenat.vits,tiesha,[id number] Tablet 1 tab PO DAILY RF: 0 Discharge Instructions Instructions: Pancreatitis (DC), Diet for Stomach Ulcers and Gastritis (GEN) Additional Instructions: Seek medical care if your abdominal pain returns - we suggest calling [facility] GI first. Follow a bland low fat diet. Return to the hospital with any fever, bleeding, chest pain, shortness of breath, or if your abdominal pain is severe. Follow up with [facility] and with your PCP. Referrals: GASTROENTEROLOGY,[facility] [OTHER] - Ursula Calhoun DIRECTOR OF FUNDRAISING [Primary Care Provider] - Activity:: Activity as Tolerated Equipment/Supplies:: No Equipment Needed Diet:: [place] low fat diet Discharge Orders Discharge Orders: Discharge Order (Routine); Ordered 05/16/21 Ordered By: Karlene Dodd DS: Summary Time Spent with Patient providing and/or coordinating discharge services: Greater than 30 minutes Status at Discharge Functional status at discharge: independent ambulation Overall status at discharge: patient is back to baseline Mental Status: mental status grossly normal Speech and Movement: speech and movement normal Mood: congruent mood Affect: normal affect Exam Narrative Exam Narrative: General: Pleasant female, not in acute distress, A&Ox3, looks better than yesterday HEENT: EOMI, MMM Heart: RRR, no m/r/g Lungs: CTAB Abdomen: soft, mildly tender in LUQ, nondistended Extremities: no edema BLE's Psych Mental Status: mental status grossly normal Speech and Movement: speech and movement normal Mood: congruent mood Affect: normal affect DS: Data Vitals/I&O Vitals and I&O: Vital Signs Temperature 36.8 C 05/16/21 08:00 Temperature Source Skin 05/16/21 08:00 Pulse 69 05/16/21 08:00 Pulse Rhythm Regular 05/16/21 08:05 Respiratory Rate 16 05/16/21 08:00 Respiratory Effort Non-Labored 05/16/21 08:05 Respiratory Depth Normal 05/16/21 08:05 Respiratory Pattern Normal 05/16/21 08:05 Blood Pressure 110/74 05/16/21 08:00 Blood Pressure Mean 76 05/14/21 15:00 Blood Pressure Position Supine 05/14/21 13:16 Pulse Oximetry 100 05/16/21 08:00 Oxygen Delivery Method Room Air 05/16/21 08:00 Oxygen Flow Rate 0 05/16/21 08:00 Pain Level 2 05/16/21 09:18 Intake & Output 05/15/21 05/16/21 05/16/21 23:59 11:59 23:59 Intake Total 2480 / 4033.333 1810 / 3620 1810 / 3620 Output Total 2750 / 3150 1900 / 1900 Balance -270 / 883.333 -90 / 1720 1810 / 1720 Intake: IV 1940 / 3493.333 1000 / 2000 1000 / 2000 Oral 540 / 540 810 / 1620 810 / 1620 Output: Urine 2750 / 3150 1900 / 1900 Other: Urine Color Yellow Pale Bright Red Urine Appearance Clear Clear Urine Odor Normal None Voiding Methods Toilet Toilet Data Completed and Pending Completed studies during hospitalization [Text1]: CT abdomen/pelvis 05/14/21: There is a multi septated predominantly fluid content mass of the tail of the pancreas, in the setting of reported subacute pancreatitis this is consistent with walled-off necrosis . Other etiologies including neoplastic disease not absolutely excluded, follow-up CT recommended following treatment. Full read: the liver is unremarkable in appearance. Gallbladder and bile ducts are CT normal. There is a small peripancreatic fluid collection and fat edema consistent with pancreatitis. The pancreatic tail contains a multi-septated predominantly fluid attenuation mass consistent with a walled-off necrotic area of the pancreas. There is small quantity of free fluid in the pelvis. No additional fluid collections in the peritoneal cavity. Pancreatic duct is nondilated. Mild wall thickening of this stomach is noted presumably due to adjacent inflammatory process. Spleen is unremarkable in appearance. Adrenals appear normal. The kidneys are unremarkable with no evidence of hydronephrosis, nephrolithiasis, or renal mass.. Urinary bladder unremarkable. Abdominal aorta is of normal diameter and no major vascular abnormality is seen. No abdominal wall hernia. No abdominal or pelvic adenopathy. [employer] structures appear intact. Appendix is normal. No evidence of diverticulitis or bowel obstruction. US abdomen 05/14/21: Abdominal ultrasound was performed according to the usual protocol. Abdominal aorta and IVC are of normal diameter. Liver is unremarkable in echotexture and no focal hepatic lesion seen. Gallbladder appears normal with no evidence of cholelithiasis or gallbladder wall thickening. Kidneys are unremarkable in appearance. Spleen appears normal. There is a complex fluid collection measuring up to about 8 cm in diameter which appears to correspond to the region of the tail of the pancreas. The patient reportedly has clinical and laboratory indications of pancreatitis. Correlation with abdominal and pelvic CT is suggested for further evaluation of the pancreas. Labs on day of discharge: Labs from last 24 hours 05/16/21 05/16/21 05/16/21 06:43 06:43 06:43 WBC 2.65 L D RBC 3.15 L Hgb 9.7 L Hct 29.8 L MCV 94.6 MCH 30.8 MCHC 32.6 RDW 12.2 Plt Count 111 L MPV 10.1 Immature Gran % 0.0 Neutrophils % 56.2 Lymphocytes % 31.3 Monocytes % 9.4 Eosinophils % 2.3 Basophils % 0.8 Nucleated RBC % 0 Absolute Neutrophils 1.49 Absolute Lymphocytes 0.83 L Absolute Monocytes 0.25 Absolute Eosinophils 0.06 Absolute Basophils 0.02 Sodium 144 Potassium 3.5 Chloride 111 H Carbon Dioxide 27.6 Anion Gap 5.4 BUN 4 L Creatinine 0.7 Estimated GFR/1.73 m2 >= 60.00 Glucose 114 H Calcium 7.8 L Magnesium 1.9 Total Bilirubin 0.3 Conjugated Bilirubin 0.1 AST 20 ALT 24 Alkaline Phosphatase 30 L C-Reactive Protein 1.10 H Total Protein 5.4 L Albumin 2.6 L Lipase 563 H [facility] Medical History Macrocytic anemia Surgical History S/P excision of fibroadenoma of breast (~1998) Right breast Family History Mother Hypertension Father No problems noted. Brother Asthma Brother No problems noted. Son Cyclic vomiting syndrome Daughter No problems noted. Maternal Grandfather Heart disease Maternal Grandmother Breast cancer Macular degeneration Paternal Grandfather Pancreatic cancer Diabetes Paternal Grandmother No problems noted. Social History Smoking/Tobacco Use Status: Never Smoking risk assessment performed?: Yes Alcohol Intake: never Drug use: Never Substance use type: does not use Do you feel safe at home: Yes Do you feel safe in your relationship?: Yes Female Reproductive History Menstrual control method: condoms History History 2 Para 2 Hx # Term Pregnancies Multiple births Hx # Pregnancies Ectopic pregnancies AB induced Hx Number of Living Children 2 AB spontaneous
--- NOTE | 2021-05-16 15:40 | CMDISCH_ITS ---
- If Service Date Differs Date of service: 05/16/21 Time of Service: 15:40 LACE Index Scoring Tool - Questions: Length of Stay (in days): 2 Acuity (Admit via E.D.?): Yes E.D. Visits: 1 - Answers: Total Score: 6 Risk of Readmission: Low Risk Care Management Discharge Reason for Hospitalization: Pancreatitis Discharge Plan: Elizabeth will return home with no new services. She will follow up with her PCP and plan of care as prescribed including outpatient follow up with [facility]. She will transport via private vehicle with her , Hieu. Patient/Family Education Needs: Review discharge instructions, medications, diet and follow up care, discuss Ask Me Three.
[2021-05-16 16:30] VITALS: BP 144/97; PULSE 66; RESP 16; TEMP 36.6; O2SAT 100
== END 2021-05-16 18:07 | disposition home or self-care (01) ==
LOC: ER 16:08 → MS 21:11
PROVIDERS: Family Medicine; Internal Medicine; Admitting Provider Family Medicine; Emergency Provider Physician Assistant; PCP Nurse Practitioner Family; Visit Provider Family Medicine
DX: K85.90 Acute pancreatitis without necrosis or infection, unspecified (principal); K86.89 Other specified diseases of pancreas; Z20.822 Contact with and (suspected) exposure to COVID-19; D53.9 Nutritional anemia, unspecified; E16.2 Hypoglycemia, unspecified
CPT/HCPCS: 36415; 80048; 80053; 80076; 81025; 83690; 87635; 96360; 99285; 74177; 81003; 81015; 82150; 83735; 85025; 86140; 99217; 99219; 99226; 99284; G0378; J0743; J2405; J3490; J7042

== ENCOUNTER 2021-06-09 23:20 | Emergency (ER) | payer BC, SELFPAY ==
[2021-06-09 23:24] VITALS: BP 151/71; PULSE 114; RESP 18; TEMP 36.8; O2SAT 100
--- NOTE | 2021-06-09 23:30 | RT.EKG_ITS ---
APPROVED REPORT Exam: Resting ECG Reason for Exam: chest pain Patient Location: E HR:99 bpm ECG Measurements Heart Rate 99 AXIS DC 133 P 82 QRSd 99 QRS 59 QT 379 T 14 QTc 488 Conclusion Sinus rhythm...normal P axis, V-rate 60- 99 Physician: no stemi, slight flattening of t waves in inferior leads, no S1Q3T3, no prior for comparis on
--- NOTE | 2021-06-09 23:38 | ED.GENADUL_ITS ---
Discharge Plan Disposition Patient Disposition: [facility] Condition: Serious Discharge Details Clinical Impression: Abdominal pain, Acute pancreatitis, Mass of pancreas Primary Care Provider: Ursula Calhoun ED Provider: Nahum Forte Home Meds and New Rx's Prescriptions: No Action prenat.vits,tiesha,evv-vllw-iqwim Tablet 1 tab PO DAILY RF: 0 Medical Decision Making 41-year-old female with a past medical history of macrocytic anemia, recent diagnosis of a pancreatic mass/pancreatic cyst recently diagnosed around 16 May, who presents today for abdominal pain. Patient states that at 8 PM she had sudden sharp and achy epigastric, and right-sided abdominal pain that radiates into her left chest when she takes a deep breath. Denies PE risk factors such as recent long car rides, immobilization, recent surgery, prior history of DVT or PE, first-degree family history of PE or DVT, morbid obesity, exogenous estrogen and smoking, hemoptysis, history of cancer. She denies any vomiting or diarrhea. She did eat cauliflower this evening but states that otherwise her diet has been unremarkable. She denies any cough. She denies any urinary or vaginal complaints. Patient states that pain feels different than her previous pain with her pancreatic mass. She has not yet been able to follow-up with gastroenterology from [facility] as her upcoming appointment is in early June. Exam demonstrates peritoneal signs with notable tenderness throughout, particularly in the epigastric right upper quadrant and right lower quadrant. Positive Rovsing sign is present, pain or McBurney's point as well as positive Ron sign. Difficult to truly differentiate, however differential includes pancreatic abscess or mass that is ruptured, appendicitis or cholecystitis. Pelvic complaints feel less likely as there appears to be less tenderness down there. Patient's pleuritic component of her pain is also concerning potential PE. Will get CTA of the chest, CT of the abdomen, gently rehydrate, manage her pain, monitor closely and reassess. 2:22 AM Laboratory work-up is returned, no white count, patient does have minimal left shift. Renal function good, electrolytes stable. Troponin normal, EKG unremarkable. Lipase is elevated at 1500, which although elevated is lower than her last admission where it was 5000. Urinalysis shows high ketones at 40 but no other significant abnormalities. Exam after the initial 4 of morphine demonstrated continued notable tenderness and peritoneal signs. After 8 of morphine patient's pain improved, still had a notably tender abdomen, however pain certainly improved. Patient states that although her pain is improved and the discomfort is more manageable she actually feels worse than before. CT scan results have returned, no acute pathology in the chest, I did contact the radiologist and he feels that the mass in the tail the pancreas is enlarged, there is a claw sign, it is larger than it was before. There is free fluid in the abdomen, he feels that the mass is more malignant appearing and just cystic in nature. He is unable to visualize the appendix, but does see a component that he thinks may be a normal-looking appendix. No other clear source for the free fluid in the abdomen otherwise or the patient's pain. Reassessment concern is for acute pancreatitis, with this atypical cystic mass, but the free fluid is certainly a change and with her peritoneal findings on exam is concerning. We did reach out to our surgeon here Dr. Murillo, unfortunately the page still not been returned. We did reach out to [facility] and spoke with Dr. Bangura, describing the exam, CT findings and laboratory findings. At this time Dr. bangura has accepted the patient for transfer for evaluation at [facility]. Of note patient's blood pressure has remained stable, heart rate has gone from the 130s to the low 100s. Patient will be transferred to [facility] ED. I have extensively reviewed the treatment plan with the patient. I have addressed all patient concerns at this time. I have also discussed the plan with the admitting physician and they agree with the current assessment and plan and have agreed to assume responsibility for the patient. All parties demonstrate verbal understanding and agreement with our assessment and plan at this time. The documentation in this chart was dictated using [employer] dictation software. Please excuse any dictation errors. At time of transfer the patient was reassessed and continued to demonstrate current medical stability. No signs of acute respiratory distress requiring intubation, hemodynamic instability requiring pressor support, or rapidly declining mental status. The patient is stable for transport. FINDINGS: Pulmonary arteries: No evidence of pulmonary embolus Aorta: Unremarkable. No aortic aneurysm. No aortic dissection. Lungs: Unremarkable. No consolidation. No masses. Pleural spaces: Unremarkable. No pneumothorax. No pleural effusion. Heart: Unremarkable. No cardiomegaly. No pericardial effusion. Lymph nodes: Unremarkable. No enlarged lymph nodes. Bones/joints: Unremarkable. No acute fracture. Soft tissues: Unremarkable. IMPRESSION: No acute pathology. No pulmonary embolus. FINDINGS: Liver: Normal. No mass. Gallbladder and bile ducts: Normal. No calcified stones. No ductal dilation. Pancreas: There is heterogeneous mass that appears to be arising from within the tail of the pancreas. There is claw sign. It measures about 8.1 x 6.7 cm. There are some internal cystic appearing components as well as some more solid-appearing components. It is fairly similar to prior. Favor neoplasm over pseudocyst. Spleen: Normal. No splenomegaly. Adrenal glands: Normal. No mass. Kidneys and ureters: Normal. No hydronephrosis. Stomach and bowel: Unremarkable. No obstruction. No mucosal thickening. Appendix: Appendix not definitively identified, but I do see a good candidate for a normal appendix from image 624 through 650 of series 13. Intraperitoneal space: New small volume low-density fluid is seen throughout the abdomen. This is nonspecific, but abnormal. Vasculature: Unremarkable. No abdominal aortic aneurysm. Lymph nodes: Unremarkable. No enlarged lymph nodes. Urinary bladder: Unremarkable as visualized. Reproductive: A previously seen left ovarian cyst is no longer evident. It may have resolved. Bones/joints: Unremarkable. No acute fracture. Soft tissues: See Pancreas finding. IMPRESSION: New diffuse intraperitoneal fluid of low-density. Cause not definitively identified. This could be related to the multi-cystic mass in the tail the pancreas, but this is not certain. Case was discussed with Dr. Forte over the phone. Thank you for allowing us to participate in the care of your patient. Dictated and Authenticated by: Korey Barreto MD 06/10/2021 1:01 AM Eastern Time ([place] & [place]) HPI General Date/Time Provider Initiated Documentation: 06/09/21 23:24 . HPI Narrative: 41-year-old female with a past medical history of macrocytic anemia, recent diagnosis of a pancreatic mass/pancreatic cyst recently diagnosed around 16 May, who presents today for abdominal pain. Patient states that at 8 PM she had sudden sharp and achy epigastric, and right-sided abdominal pain that r adiates into her left chest when she takes a deep breath. Denies PE risk factors such as recent long car rides, immobilization, recent surgery, prior history of DVT or PE, first-degree family history of PE or DVT, morbid obesity, exogenous estrogen and smoking, hemoptysis, history of cancer. She denies any vomiting or diarrhea. She did eat cauliflower this evening but states that otherwise her diet has been unremarkable. She denies any cough. She denies any urinary or vaginal complaints. Patient states that pain feels different than her previous pain with her pancreatic mass. She has not yet been able to follow-up with gastroenterology from [facility] as her upcoming appointment is in early June. Related Data Home Medications Medication Instructions Recorded Confirmed prenat.vits,tiesha,zlh-xkyg-wibab 1 tab PO DAILY 01/18/21 06/09/21 Allergies Allergy/AdvReac Type Severity Reaction Status Date / Time BIRTHCONTROL PILL Allergy EYE Uncoded 06/09/21 23:30 IRRITATION PEACHES Allergy Uncoded 06/09/21 23:30 HIVES/SWELLING/BREATHING ISSUES General Stated Complaint: Abd Prob ALEC: 3 Review of Systems All systems reviewed & are unremarkable except as noted in HPI and below PFSH Medical History Macrocytic anemia Surgical History S/P excision of fibroadenoma of breast (~1998) Right breast Family History Mother Hypertension Father No problems noted. Brother Asthma Brother No problems noted. Son Cyclic vomiting syndrome Daughter No problems noted. Maternal Grandfather Heart disease Maternal Grandmother Breast cancer Macular degeneration Paternal Grandfather Pancreatic cancer Diabetes Paternal Grandmother No problems noted. Social History Smoking/Tobacco Use Status: Never Smoking risk assessment performed?: Yes Alcohol Intake: never Drug use: Never Substance use type: does not use Do you feel safe at home: Yes Do you feel safe in your relationship?: Yes Female Reproductive History Menstrual control method: condoms History History 2 Para 2 Hx # Term Pregnancies Multiple births Hx # Pregnancies Ectopic pregnancies AB induced Hx Number of Living Children 2 AB spontaneous Exam Narrative Exam Narrative: 1.Const: Well-nourished, Well-developed, appearing stated age 2.Eyes: PERRL, no conjunctival injection, and symmetrical lids. 3.ENT: Atraumatic external nose and ears. Moist MM. Neck: Symmetric, trachea midline, No thyromegaly. 4.CVS: +S1/S2, No murmurs or gallops. Peripheral pulses 2+ and equal in all extremities. Brisk capillary refill in all extremities. 5.RESP: Unlabored respiratory effort. Clear to auscultation bilaterally. No wheezes rales or rhonchi 6.GI: Soft, voluntary guarding, notable tenderness in the epigastric region, the right upper quadrant and the right lower quadrant. Positive Rovsing sign, positive Ron sign. Symptoms appear more consistent with the peritoneal ten derness abdomen, heel strike elicits pain and tenderness throughout the entire abdomen. No significant pain in the left lower quadrant though. 7.MSK: Normocephalic/Atraumatic, Extremities w/o deformity or ttp No cyanosis or clubbing, Normal movement of all extremities, no calf tenderness. 8.Skin: Warm, Dry. No rashes or lesions. 9.Neuro: television receiver analyzer II-XII grossly intact. Sensation grossly intact, no focal neurologic deficits. 10.Psych: (AAO) x3. Appropriate mood and affect Course Vital Signs Vital signs: Vital Signs Temperature 36.8 C 06/09/21 23:24 Pulse 114 H 06/09/21 23:24 Respiratory Rate 18 06/09/21 23:24 Blood Pressure 151/71 H 06/09/21 23:24 Pulse Oximetry 100 06/09/21 23:24 Temperature 36.8 C 06/09/21 23:24 Temperature Source Temporal Artery Scan 06/09/21 23:24 Pulse 114 H 06/09/21 23:24 Respiratory Rate 18 06/09/21 23:24 Respiratory Effort Non-Labored 06/09/21 23:33 Blood Pressure 151/71 H 06/09/21 23:24 Blood Pressure Position Sitting 06/09/21 23:24 Pulse Oximetry 100 06/09/21 23:24 Oxygen Delivery Method Room Air 06/09/21 23:24 Oxygen Flow Rate 0 06/09/21 23:24 Pain Level 10 06/09/21 23:24
[2021-06-09 23:57] LABS: Abs Immature Grans 0.03 10^3/uL (0.0-0.06); Absolute Basophil Count 0.02 10^3/uL (0.0-0.2); Absolute Eosinophil Count 0.08 10^3/uL (0.0-0.7); Absolute Lymphocyte Count 0.73 10^3/uL (1.2-3.4); Absolute Monocyte Count 0.45 10^3/uL (0.1-0.8); Absolute Neutrophil Count 7.76 10^3/uL (1.2-6.7); Basophils % 0.2; Eosinophils % 0.9; HCT 41.8 % (36.0-46.0); HGB 13.6 g/dL (11.2-15.7); Immature Grans % 0.3; MCH 30.7 pg (27.0-33.0); MCHC 32.5 % (32.0-36.0); MCV 94.4 fL (80-95); MPV 10.6 fL (8.0-11.0); Neutrophils % 85.6; Nucleated RBC 0 %; Platelet Count 158 10^3/uL (130-400); RBC 4.43 10^6/uL (3.93-5.22); RDW 12.4 % (11.7-14.6); RDW-SD 43.3 fL; WBC 9.07 10^3/uL (4.4-10.8)
[2021-06-09 23:58] VITALS: TEMP 36.8
[2021-06-09 23:58] LABS: Bilirubin Negative (Negative); Blood Trace-intact (Negative); Clarity Clear (Clear); Glucose Negative (Negative); Ketones 40 mg/dL (Negative); Leukocyte Esterase Negative (Negative); Nitrite Negative (Negative); Specific Gravity 1.025 (1.005-1.025); Urobilinogen 0.2 EU/dL (Up TO 0.2); pH 5.5 (5-8)
[2021-06-09] MEDS: MORPHine 4 MG/ML SYR IVP (23:58)
[2021-06-10] VITALS (15 sets, daily range): BP systolic 104–127; BP diastolic 54–81; PULSE 89–130; RESP 10–25; TEMP 36.8–37; O2SAT 94–100
[2021-06-10 00:04] LABS: Bacteria Rare HPF (Negative); C & S Indicated? No; Casts Negative LPF (Negative); Crystals Negative HPF (Negative); Epithelial Cells Rare HPF (Negative); Mucus Negative (Negative); RBC 0-2 HPF (0-2); WBC Negative HPF (0-5)
[2021-06-10] MEDS: Lactated Ringers 1,000 ML 1000 ML IV (00:04)
[2021-06-10 00:13] LABS: ALT 23 U/L (14-59); AST 18 U/L (15-37); Albumin 4.2 g/dL (3.4-5.0); Alkaline Phosphatase 51 U/L (46-116); BUN 10 mg/dL (7-18); Bilirubin, Total 0.3 mg/dL (0.2-1.0); CREATININE 0.9 mg/dL (0.55-1.02); Chloride 103 mmol/L (98-107); Glucose 130 mg/dL (74-106); Lipase 1512 U/L (73-393); Potassium 3.4 mmol/L (3.5-5.1); Sodium 141 mmol/L (136-145); Total Protein 7.8 g/dL (6.4-8.2)
[2021-06-10 00:14] LABS: Troponin I < 0.05 ng/mL (<0.06)
--- NOTE | 2021-06-10 00:15 | NUR.NOTE ---
Nursing Note: Patient reports right sided abd pain improved after receiving medication for pain.
--- NOTE | 2021-06-10 00:40 | DI.CT_ITS ---
Exam(s) CT CHEST PE ABD PELVIS W EXAM: CT CHEST PE ABD PELVIS W CLINICAL HISTORY: pleuritic CP, epigastric pain, R sided abd pain. TECHNIQUE: Imaging Protocol: Axial CT angiography was performed with multi-slice acquisition and m ulti-planar and/or 3D reconstructions. CONTRAST MATERIAL: Intravenous: Omnipaque 350 Contrast volume:100 ml Oral: None COMPARISON: CT CT ABDOMEN PELVIS W from 05/14/2021 FINDINGS: CHEST: PULMONARY ARTERIES: There are no intra-arterial filling defects to suggest the presence of acute pulm onary emboli. LUNGS: There is no evidence of pulmonary infarction.No infiltrates or nodules. There are no pleural effusions. MEDIASTINUM: There is no hilar nor mediastinal adenopathy. Visualized thyroid unremarkable. CARDIAC: Heart size is normal. There is no pericardial effusion. There is no significant shift of t he interventricular septum.Caliber of the thoracic aorta is within normal limits. OSSEOUS: No significant osseous lesions.. ABDOMEN: There is a small amount of ascites. LIVER: There are no focal hepatic lesions nor dilatation of intrahepatic ducts. GALLBLADDER/BILIARY: No obvious gallbladder pathology. CBD is not dilated. PANCREAS: Again noted is a previously described large complex cystic mass in the tail the pancreas wh ich is suspicious for neoplasm. This measures approximately 7.6 wide by 6.8 AP by 5.8 cm craniocauda l. Remainder of the pancreas and uncinate process are unremarkable. Visualized pancreatic duct is n ot dilated. SPLEEN: Spleen is not enlarged. There are no intrasplenic lesions. Splenic and portal veins are so nt. ADRENALS: There are no significant adrenal masses. KIDNEYS:No cysts evident. No calculi nor hydronephrosis. No solid renal masses. ABDOMINAL AORTA: Abdominal aorta is not enlarged. LYMPH NODES: There is no retroperitoneal or para-aortic adenopathy. ABDOMINAL WALL/GI: There is a small fat containing umbilical hernia. Does not contain bowel loops. There is no bowel obstruction. PELVIS: LYMPH NODES: There is no intrapelvic nor inguinal adenopathy. GI: No evidence of appendicitis.No evidence of sigmoid diverticulitis. URINARY BLADDER: No calculi nor masses evident REPRODUCTIVE: Uterus size is age-appropriate. There is a 1 centimeters cyst in the right ovary. The re is a small amount of fluid in the cul-de-sac. OSSEOUS: No significant osseous lesions. IMPRESSION: 1. Compared to the prior CT scan of 05/14/2021 there is again noted a large multi-septated cystic-bryanna id mass in the pancreatic tail measuring approximately 7.6 x 6.8 x 5.8 cm and suspicious for neoplasm . There are no lesions in the liver evident. However, there is a small amount of ascites evident. 2. No obvious adenopathy. No other significant findings in the abdomen and pelvis. 3. No lung nodules nor infiltrates nor intrathoracic adenopathy. 4. Appropriate referral for this large concern pancreatic mass is recommended RADIATION DOSE DELIVERED: 1,074.74mGy.cm Total DLP DATA REPOSITORY: All CT scans at this facility are submitted to the National Radiology Data Registry (NRDR) Dose Index Registry (DIR) with the [employer] (ACR). RADIATION OPTIMIZATION: All CT scans at this facility use at least one of these dose optimization te chniques: automated exposure control; mA and/or kV adjustment per patient size (includes targeted exa ms where dose is matched to clinical indication); or iterative reconstruction.
--- NOTE | 2021-06-10 01:02 | DI.VRAD_ITS ---
PROCEDURE INFORMATION: Exam: CTA Chest With Contrast Exam date and time: 06/10/2021 12:00 AM Age: 41 years old Clinical indication: Other: Pleuritic cp; Other: Epigastric pain, R sided abd pain TECHNIQUE: Imaging protocol: Computed tomographic angiography of the chest with contrast. 3D rendering (Not supervised by radiologist): MIP and/or 3D reconstructed images were created by the technologist. Radiation optimization: All CT scans at this facility use at least one of these dose optimization techniques: automated exposure control; mA and/or kV adjustment per patient size (includes targeted exams where dose is matched to clinical indication); or iterative reconstruction. Contrast material: OMNIPAQUE 350; Contrast volume: 100 ml; Contrast route: INTRAVENOUS (IV); COMPARISON: CT ABDOMEN PELVIS W 05/14/2021 1:54 PM FINDINGS: Pulmonary arteries: No evidence of pulmonary embolus Aorta: Unremarkable. No aortic aneurysm. No aortic dissection. Lungs: Unremarkable. No consolidation. No masses. Pleural spaces: Unremarkable. No pneumothorax. No pleural effusion. Heart: Unremarkable. No cardiomegaly. No pericardial effusion. Lymph nodes: Unremarkable. No enlarged lymph nodes. Bones/joints: Unremarkable. No acute fracture. Soft tissues: Unremarkable. IMPRESSION: No acute pathology. No pulmonary embolus. PROCEDURE INFORMATION: Exam: CT Abdomen And Pelvis With Contrast Exam date and time: 06/10/2021 12:00 AM Age: 41 years old Clinical indication: Other: Pleuritic cp; Other: Epigastric pain, R sided abd pain TECHNIQUE: Imaging protocol: Computed tomography of the abdomen and pelvis with contrast. Radiation optimization: All CT scans at this facility use at least one of these dose optimization techniques: automated exposure control; mA and/or kV adjustment per patient size (includes targeted exams where dose is matched to clinical indication); or iterative reconstruction. Contrast material: OMNIPAQUE 350; Contrast volume: 100 ml; Contrast route: INTRAVENOUS (IV); COMPARISON: CT ABDOMEN PELVIS W 05/14/2021 1:54 PM FINDINGS: Liver: Normal. No mass. Gallbladder and bile ducts: Normal. No calcified stones. No ductal dilation. Pancreas: There is heterogeneous mass that appears to be arising from within the tail of the pancreas. There is claw sign. It measures about 8.1 x 6.7 cm. There are some internal cystic appearing components as well as some more solid-appearing components. It is fairly similar to prior. Favor neoplasm over pseudocyst. Spleen: Normal. No splenomegaly. Adrenal glands: Normal. No mass. Kidneys and ureters: Normal. No hydronephrosis. Stomach and bowel: Unremarkable. No obstruction. No mucosal thickening. Appendix: Appendix not definitively identified, but I do see a good candidate for a normal appendix from image 624 through 650 of series 13. Intraperitoneal space: New small volume low-density fluid is seen throughout the abdomen. This is nonspecific, but abnormal. Vasculature: Unremarkable. No abdominal aortic aneurysm. Lymph nodes: Unremarkable. No enlarged lymph nodes. Urinary bladder: Unremarkable as visualized. Reproductive: A previously seen left ovarian cyst is no longer evident. It may have resolved. Bones/joints: Unremarkable. No acute fracture. Soft tissues: See Pancreas finding. IMPRESSION: New diffuse intraperitoneal fluid of low-density. Cause not definitively identified. This could be related to the multi-cystic mass in the tail the pancreas, but this is not certain. Case was discussed with Dr. Forte over the phone. Dictated and Authenticated by: Korey Barreto MD. Ordering:ANGELLA Sidhu MD
[2021-06-10] MEDS: Normal Saline - Diluent 50 ML VIAL IV (01:03)
[2021-06-10] MEDS: Omnipaque 350 MG/ML 100 ML BTL IJ (01:03)
[2021-06-10] MEDS: Normal Saline Flush 10 ML SYR IVP (01:04)
[2021-06-10] MEDS: Normal Saline 1,000 ML 1000 ML IV (01:11)
--- NOTE | 2021-06-10 01:14 | NUR.NOTE ---
Nursing Note: Dr. Forte at bedside to speak with patient.
[2021-06-10] MEDS: MORPHine 4 MG/ML SYR IVP (01:27)
--- NOTE | 2021-06-10 01:32 | NUR.NOTE ---
Nursing Note: Patient medicated as ordered by MD for abd pain.
[2021-06-10] MEDS: Ondansetron 4 MG/2 ML VIAL IVP (02:03)
--- NOTE | 2021-06-10 02:12 | NUR.NOTE ---
Nursing Note: Patient medicated as ordered by MD for nausea. Patient reports her pain has improved with medication.
[2021-06-10 02:17] LABS: COVID-19 PCR Negative (Negative)
== END 2021-06-10 02:53 | disposition short-term general hospital (02) ==
PROVIDERS: Emergency Provider Student in an Organized Health Care Education/Training Program; PCP Nurse Practitioner Family
DX: K85.90 Acute pancreatitis without necrosis or infection, unspecified (principal); R10.11 Right upper quadrant pain; K86.89 Other specified diseases of pancreas
CPT/HCPCS: 36415; 71275; 74177; 80053; 81025; 83690; 87635; 93005; 96361; 96374; 96375; 96376; 99285; 81003; 81015; 84484; 85025; 93010; J2270; J2405; J3490

== ENCOUNTER 2021-10-13 01:28 | Outpatient (CLI) | payer BC, SELFPAY ==
[2021-10-13 12:48] LABS: HGB 12.2 g/dL (11.2-15.7); MCH 29.5 pg (27.0-33.0); MCHC 32.1 % (32.0-36.0); MCV 91.8 fL (80-95); MPV 11.2 fL (8.0-11.0); Platelet Count 328 10^3/uL (130-400); RBC 4.14 10^6/uL (3.93-5.22); RDW-SD 54.5 fL
[2021-10-13 13:29] LABS: ALT 24 U/L (14-59); AST 18 U/L (15-37); Albumin 4.1 g/dL (3.4-5.0); Alkaline Phosphatase 56 U/L (46-116); Anion Gap 7.4 mmol/L (3-11); BUN 12 mg/dL (7-18); Bilirubin, Total 0.5 mg/dL (0.2-1.0); CO2 29.6 mmol/L (21.0-32.0); CREATININE 0.7 mg/dL (0.55-1.02); Calcium 9.1 mg/dL (8.5-10.1); Chloride 103 mmol/L (98-107); Glucose 86 mg/dL (74-106); Lipase 122 U/L (73-393); Potassium 4.3 mmol/L (3.5-5.1); Sodium 140 mmol/L (136-145); Total Protein 7.3 g/dL (6.4-8.2)
[2021-10-13 13:33] LABS: Hemoglobin A1C 5.7 % (<5.7)
[2021-10-13 19:36] LABS: Calculated LDL 97 mg/dL (<100); Cholesterol 165 mg/dL (<200); HDL Cholesterol 57 mg/dL (40-60); TSH (W/Ref FT4) 2.17 uIU/mL (0.36-3.74); Triglyceride 57 mg/dL (<150)
== END 2021-10-13 01:29 | disposition home or self-care (01) ==
LOC: LOS 01:28
PROVIDERS: PCP Nurse Practitioner Family; Visit Provider Nurse Practitioner Family
DX: Z90.411 Acquired partial absence of pancreas (principal); Z98.890 Other specified postprocedural states
CPT/HCPCS: 36415; 80053; 80061; 83690; 85027; 83036; 84443

== ENCOUNTER 2022-02-16 00:27 | Outpatient (CLI) | payer BC, SELFPAY ==
--- NOTE | 2022-02-16 13:18 | DI.MAMMO_ITS ---
Exam(s) MAMMO SCREENING EXAM: MAMMO SCREENING CLINICAL HISTORY: screening.Z12.39. TECHNIQUE: Bilateral full field digital CC and MLO mammographic images were obtained with 3D tomosyn thesis and utilizing computer aided detection (CAD). COMPARISON: None. This is a baseline mammogram on this 41-year-old patient. FINDINGS: The fibroglandular tissue pattern is moderately dense. There are no obvious spiculated masses nor malignant-appearing microcalcification groups in either br east. There is no significant architectural distortion nor skin thickening-retraction. IMPRESSION: No radiographic evidence of malignancy. BI-RADS Category 1 - Negative Breast Density - Category C - Heterogeneously dense Breast density Category C or D implies that the patient has dense breast tissue. Dense breast tissue can make it harder to find cancer on a mammogram. Dense breast tissue is also associated with an incr eased risk of breast cancer. This information about the result of the mammogram report was provided to the patient to raise their awareness. Use this report when you speak with the patient about their risks for breast cancer, which includes their family history. At that time, you may recommend additional screening tests (Ultrasoun d or MRI) as these tests may add significant information. A negative radiographic report should not delay biopsy if a dominant or clinically suspicious mass is present. Up to ten percent of cancers are not identified on mammography. A negative report may reinforce clinical impression. Adenosis and dense breasts may obscure an underlying neoplasm. False positive reports average 6 to 10%. Patient will receive a letter notifying them of these results.
--- NOTE | 2022-02-16 13:23 | DI.RAD_ITS ---
Exam(s) XR ARTHRITIS SERIES EXAM: XR ARTHRITIS SERIES CLINICAL HISTORY: Bilateral hand xray, assess inflammatory arthritis,FINGER ERYTHEMA,DEFORMIT. TECHNIQUE: 2D digital imaging was performed. COMPARISON: No previous exams are available for comparison FINDINGS: Two views-PA and [place] views of both hands There is no evidence of fracture nor subluxations. No osseous lesions nor erosions. Bone density ap pears age appropriate. There is no exaggerated periarticular osteopenia. First carpometacarpal join ts are unremarkable bilaterally. No significant ulnar variance. Bone density of the carpal row bone s is normal. Metacarpophalangeal joints appear unremarkable. No erosions. No abnormal soft tissue calcifications . No radiopaque foreign bodies. IMPRESSION: No significant findings. DATA REPOSITORY: RADIATION DOSE DELIVERED:
== END 2022-02-16 00:47 ==
PROVIDERS: PCP Nurse Practitioner Family; Visit Provider Nurse Practitioner Family
DX: Z12.31 Encounter for screening mammogram for malignant neoplasm of breast (principal); M19.041 Primary osteoarthritis, right hand; M19.042 Primary osteoarthritis, left hand; L53.8 Other specified erythematous conditions; M20.091 Other deformity of right finger(s); M20.092 Other deformity of left finger(s)
CPT/HCPCS: 77063; 77067; 73120

== ENCOUNTER 2022-05-19 04:16 | Outpatient (CLI) | payer BC, SELFPAY ==
[2022-05-19 12:36] LABS: HGB 13.2 g/dL (11.2-15.7); MCH 32.2 pg (27.0-33.0); MCHC 33.8 % (32.0-36.0); MCV 95 fL (80-95); MPV 10.9 fL (8.0-11.0); Platelet Count 267 10^3/uL (130-400); RDW 13.2 % (11.7-14.6); RDW-SD 46.5 fL; WBC 4.98 10^3/uL (4.4-10.8)
[2022-05-19 12:45] LABS: ALT 28 U/L (14-59); AST 24 U/L (15-37); Albumin 3.8 g/dL (3.4-5.0); Alkaline Phosphatase 43 U/L (46-116); Anion Gap 5.8 mmol/L (3-11); BUN 17 mg/dL (7-18); Bilirubin, Total 0.5 mg/dL (0.2-1.0); CO2 28.2 mmol/L (21.0-32.0); CREATININE 0.7 mg/dL (0.55-1.02); Calcium 8.9 mg/dL (8.5-10.1); Chloride 104 mmol/L (98-107); Glucose 91 mg/dL (74-106); Potassium 3.6 mmol/L (3.5-5.1); Sodium 138 mmol/L (136-145); Total Protein 7.3 g/dL (6.4-8.2)
[2022-05-19 13:06] LABS: Vitamin D 25 Total 32.5 ng/mL (30-100)
== END 2022-05-19 04:17 | disposition home or self-care (01) ==
LOC: LOS 04:16
PROVIDERS: PCP Nurse Practitioner Family; Visit Provider Nurse Practitioner Family
DX: D37.8 Neoplasm of uncertain behavior of other specified digestive organs
CPT/HCPCS: 36415; 80053; 82306; 85027

== ENCOUNTER → 2022-07-01 00:29 | Outpatient (CLI) | payer BC, SELFPAY ==
--- NOTE | 2022-07-01 | DI.CT_ITS ---
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 Exam performed during arterial and venous phases. CONTRAST MATERIAL: Intravenous: Omnipaque 350 Contrast volume:100 cc Oral: yes / COMPARISON: CT CT CHEST PE ABD PELVIS W from 06/10/2021 FINDINGS: ABDOMEN: Lung Bases: Normal where visualized. Liver: Normal density. No measurable mass. Gallbladder and biliary tract: Status post cholecystectomy. No radiodense calculus or dilation. Pancreas: Status post resection the tail including previously noted large mass. No evidence of recur rence mass. The head and remaining portion of the body are of normal density, no abnormal calcificat ions or inflammatory process. Spleen: Status post splenectomy. Kidneys: Normal size, contour and axis. No radiodense stones or obstructive uropathy. No masses seen. Adrenal glands: No masses seen. Abdominal Aorta: Abdominal portion non-dilated. Arterial and venous structures are patent. Lymph nodes: Within normal limits. Bowel: No wall thickening or evidence of obstruction. Stomach unremarkable as visualized. Increased quantity of stool noted in the colon. Bones: Unremarkable for age. Soft tissues: Healed midline surgical scar. IMPRESSION: Status post resection of previously noted mass in the tail of the pancreas. Status post splenectomy. No evidence of recurrence mass or adenopathy. No evidence of metastatic disease. RADIATION DOSE DELIVERED: 652.5mGy.cm Total DLP DATA REPOSITORY: All CT scans at this facility are submitted to the National Radiology Data Registry (NRDR) Dose Index Registry (DIR) with the [employer] (ACR). RADIATION OPTIMIZATION: All CT scans at this facility use at least one of these dose optimization te chniques: automated exposure control; mA and/or kV adjustment per patient size (includes targeted exa ms where dose is matched to clinical indication); or iterative reconstruction.
[2022-07-01] MEDS: Barium Sulfate 2% W/V-Berry Smoothie 450 ML BTL PO (07:58)
[2022-07-01] MEDS: Omnipaque 350 MG/ML 100 ML BTL IJ (09:05)
== END ==
PROVIDERS: PCP Nurse Practitioner Family; Visit Provider Surgery
DX: Z98.890 Other specified postprocedural states (principal)
CPT/HCPCS: 74160; J3490

== ENCOUNTER 2023-02-02 20:03 | Outpatient (REF) | payer BC, SELFPAY | END 2023-02-02 20:04 | disposition home or self-care (01) | LOC: LBN 20:03 | PROVIDERS: PCP Nurse Practitioner Family; Visit Provider Nurse Practitioner Family | DX: R10.30 Lower abdominal pain, unspecified (principal); R39.15 Urgency of urination | CPT/HCPCS: 87086 ==

== ENCOUNTER 2023-02-03 09:35 | Outpatient (CLI) | payer BC, SELFPAY ==
[2023-02-03 10:00] LABS: Hemoglobin A1C 5.7 % (<5.7)
[2023-02-03 10:11] LABS: ALT 25 U/L (14-59); AST 21 U/L (15-37); Albumin 4.2 g/dL (3.4-5.0); Alkaline Phosphatase 51 U/L (46-116); Anion Gap 5.1 mmol/L (3-11); BUN 12 mg/dL (7-18); Bilirubin, Total 0.5 mg/dL (0.2-1.0); CO2 28.9 mmol/L (21.0-32.0); CREATININE 0.8 mg/dL (0.55-1.02); Calcium 9.2 mg/dL (8.5-10.1); Chloride 103 mmol/L (98-107); Estimated GFR 94.87 (mL/min/1.73m2); Glucose 91 mg/dL (74-106); Potassium 4.2 mmol/L (3.5-5.1); Sodium 137 mmol/L (136-145)
== END 2023-02-03 09:36 | disposition home or self-care (01) ==
LOC: LBO 09:35
PROVIDERS: PCP Nurse Practitioner Family; Visit Provider Nurse Practitioner Family
DX: D49.0 Neoplasm of unspecified behavior of digestive system (principal)
CPT/HCPCS: 36415; 80053; 83036

== ENCOUNTER 2023-02-03 16:55 | Outpatient (REF) | payer BC, SELFPAY ==
[2023-02-03 20:59] LABS: Bilirubin Negative (Negative); Blood Negative (Negative); Clarity Clear (Clear); Glucose Negative (Negative); Ketones Negative (Negative); Leukocyte Esterase Negative (Negative); Nitrite Negative (Negative); Urobilinogen 0.2 mg/dL (Up to 0.2)
== END 2023-02-03 16:56 | disposition home or self-care (01) ==
LOC: LBN 16:55
PROVIDERS: PCP Nurse Practitioner Family; Visit Provider Nurse Practitioner Family
DX: R10.9 Unspecified abdominal pain (principal); R30.0 Dysuria
CPT/HCPCS: 81003

== ENCOUNTER 2023-02-22 00:47 | Outpatient (CLI) | payer BC, SELFPAY | END 2023-02-22 01:07 | PROVIDERS: PCP Nurse Practitioner Family; Visit Provider Nurse Practitioner Family | DX: Z12.31 Encounter for screening mammogram for malignant neoplasm of breast (principal) | CPT/HCPCS: 77063; 77067 ==

== ENCOUNTER 2024-02-23 01:26 | Outpatient (CLI) | payer BC, SELFPAY ==
[2024-02-23 08:09] LABS: HCT 40.3 % (36.0-46.0); HGB 13.4 g/dL (11.2-15.7); MCH 31.6 pg (27.0-33.0); MCHC 33.3 % (32.0-36.0); MCV 95 fL (80-95); MPV 11.9 fL (8.0-11.0); Platelet Count 170 10^3/uL (130-400); RBC 4.24 10^6/uL (3.93-5.22); RDW-SD 45.5 fL; WBC 3.35 10^3/uL (4.4-10.8)
[2024-02-23 08:27] LABS: Hemoglobin A1C 5.8 % (<5.7)
[2024-02-23 08:28] LABS: ALT 25 U/L (14-59); AST 21 U/L (15-37); Albumin 3.9 g/dL (3.4-5.0); Alkaline Phosphatase 48 U/L (46-116); BUN 13 mg/dL (7-18); Bilirubin, Total 0.4 mg/dL (0.2-1.0); CREATININE 0.8 mg/dL (0.55-1.02); Calcium 8.7 mg/dL (8.5-10.1); Calculated LDL 69 mg/dL (<100); Chloride 104 mmol/L (98-107); Cholesterol 124 mg/dL (<200); Estimated GFR 94.28 (mL/min/1.73m2); Glucose 88 mg/dL (74-106); HDL Cholesterol 47 mg/dL (40-60); Potassium 3.5 mmol/L (3.5-5.1); Sodium 142 mmol/L (136-145); Total Protein 7.5 g/dL (6.4-8.2); Triglyceride 42 mg/dL (<150)
[2024-02-23 08:33] LABS: Absolute Lymphocyte Count 1.34 10^3/uL (1.2-3.4); Absolute Monocyte Count 0.57 10^3/uL (0.1-0.8); Absolute Neutrophil Count 1.34 10^3/uL (1.2-6.7); Atypical Lymphocytes % 10; Burr Cells (echinocyte) 2+; Diff Comment Manual Differential
[2024-02-23 08:49] LABS: Vitamin D 25 Total 25.5 ng/mL (30-100)
[2024-02-23 19:55] LABS: Hepatitis C Ab w Rflx HCV PCR Negative (Negative)
== END 2024-02-23 01:27 | disposition home or self-care (01) ==
LOC: LBO 01:27
PROVIDERS: PCP Nurse Practitioner Family; Visit Provider Nurse Practitioner Family
DX: Z00.00 Encounter for general adult medical examination without abnormal findings (principal)
CPT/HCPCS: 36415; 80053; 80061; 82306; 86803; 83036; 85025

== ENCOUNTER → 2024-03-01 01:27 | Outpatient (CLI) | payer BC, SELFPAY ==
--- NOTE | 2024-03-01 07:45 | DI.MAMMO_ITS ---
Exam(s) MAMMO SCREENING EXAM: MAMMO SCREENING CLINICAL HISTORY: screening,Z12.39 TECHNIQUE: Mammograms were interpreted according to the usual protocol including computer analysis w bMenu CAD system, tomosynthesis and C-view imaging. COMPARISON: 2021 and 2022 FINDINGS: The breasts are composed of heterogeneously dense fibroglandular densities, Breast Density category C . No suspicious masses or suspicious microcalcifications are seen. No skin thickening or abnormal axillary lymph nodes are seen. There has been no significant change from prior exams. IMPRESSION: BI-RADS Category 1, Negative mammogram. Yearly screening mammography is recommended. Breast Density Category C, heterogeneously Dense. The mammogram demonstrates the patient's breast tissue is dense. Dense breast tissue is very common a nd is not abnormal but dense breast tissue can make it harder to find cancer on a mammogram. Also, de nse breast tissue may increase breast cancer risk. This information about the result of the mammogram report was provided to the patient to raise their awareness. Use this report when you speak with the patient about their risks for breast cancer, which includes their family history. At that time, you may recommend additional screening tests (Ultrasound or MRI) as they might be useful based on their r isk. A negative radiographic report should not delay biopsy if a dominant or clinically suspicious mass is present. Up to ten percent of cancers are not identified on mammography. A negative report may reinforce clinical impression. Adenosis and dense breasts may obscure an underlying neoplasm. False positive reports average 6 to 10%.
== END ==
PROVIDERS: PCP Nurse Practitioner Family; Visit Provider Nurse Practitioner Family
DX: Z12.31 Encounter for screening mammogram for malignant neoplasm of breast (principal)
CPT/HCPCS: 77063; 77067

== ENCOUNTER → 2024-03-07 01:29 | Outpatient (CLI) | payer BC, SELFPAY ==
--- NOTE | 2024-03-07 07:15 | DI.MRI_ITS ---
Exam(s) MR LOWER JOINT RT WO EXAM: MR LOWER JOINT RT WO CLINICAL HISTORY: assess right hip for labral tear,RT GROIN PAIN,R10.31 TECHNIQUE: Multiplanar multisequence MRI of the hip was performed. COMPARISON: CT CT CHEST PE ABD PELVIS W from 06/10/[address] CHEST PE ABD PELVIS W from 06/10/2021 CT scan of the abdomen-pelvis performed 06/10/2021 was reviewed. FINDINGS: MARROW:There is no evidence of fracture, bone contusion, nor avascular necrosis. There are no signif icant osseous lesions.There is no significant osseous excrescence at the femoral head-neck junction t o suggest the presence of cam-type ELIE. There are 2 adjacent subcortical non expansile cystic struct ures in the anterior aspect of the right femoral head-neck junction consistent with benign synovial p its. There are no femoral head osteophytes EFFUSION: There is no evidence of joint effusion. BURSAE: There is no evidence of trochanteric bursitis. There is no evidence of iliopsoas bursitis. HIP JOINT SPACE: No obvious chondral defects. No degenerative subarticular cysts in the femoral head and acetabulum.. No osteophytes. There is no hypertrophy of the ligamentum teres nor signal abnorm ality at the fovea centralis. LABRUM: There is no evidence of obvious labral tear nor evidence of paralabral cyst. TENDONS: There is partial tear at the insertional aspect of the gluteus medius tendon on the outer as pect of the greater trochanter ISCHIAL TUBEROSITY/HAMSTRING: There is no abnormal intraosseous signal in the ipsilateral ischial tub erosity nor tear of the common hamstrings tendon attachment site at this level. OTHER: There is no abnormal intramuscular signal within the quadratus femoris to suggest the presence of impingement syndrome at this level. No abnormal intraosseous signal abnormality in the pubic rami. IMPRESSION: 1. There is a partial tear at the insertional aspect of the gluteus medius tendon on the outer aspect of the greater trochanter. 2. No evidence of obvious labral tear and no evidence of paralabral cyst 3. Two adjacent small benign synovial pits are noted on the anterior aspect of the femoral head at it s junction with the upper femoral neck. There are no osteophytes at this level. 4.No evidence of stress fracture, avascular necrosis, nor hip joint effusion. DATA REPOSITORY:
== END ==
PROVIDERS: PCP Nurse Practitioner Family; Visit Provider Nurse Practitioner Family
DX: S76.011A Strain of muscle, fascia and tendon of right hip, initial encounter (principal); X58.XXXA Exposure to other specified factors, initial encounter
CPT/HCPCS: 73721

== ENCOUNTER 2024-03-27 15:40 | Outpatient (CLI) | payer BC, SELFPAY ==
--- NOTE | 2024-03-27 08:30 | DI.RAD_ITS ---
Exam(s) XR HIP RT COMPLETE AP PELVIS EXAM: XR HIP RT COMPLETE AP PELVIS CLINICAL HISTORY: RIGHT HIP PAIN. TECHNIQUE: 2D digital imaging was performed of the right hip. Two images were obtained. AP pelvis a nd lateral right hip views were obtained. COMPARISON: MR MR LOWER JOINT RT WO from 03/07/2024 FINDINGS: BONES: No acute fracture is present. No bony destructive lesion is seen. JOINTS: No dislocation present. The right hip joint is well maintained. SOFT TISSUE: There is a well corticated density adjacent to the superior aspect of the greater trocha nter which appears chronic. IMPRESSION: Calcification adjacent to the greater trochanter which may represent calcific tendinitis. DATA REPOSITORY: RADIATION DOSE DELIVERED:
== END 2024-03-27 15:41 | disposition home or self-care (01) ==
LOC: DIORS 15:40
PROVIDERS: PCP Nurse Practitioner Family; Visit Provider Student in an Organized Health Care Education/Training Program
DX: S76.011A Strain of muscle, fascia and tendon of right hip, initial encounter (principal); X58.XXXA Exposure to other specified factors, initial encounter
CPT/HCPCS: 73502

== ENCOUNTER 2024-04-17 09:44 | Outpatient (CLI) | payer BC, SELFPAY ==
[2024-04-17 10:19] LABS: Abs Immature Grans 0.01 10^3/uL (0.0-0.06); Absolute Basophil Count 0.05 10^3/uL (0.0-0.2); Absolute Eosinophil Count 0.06 10^3/uL (0.0-0.7); Absolute Lymphocyte Count 1.32 10^3/uL (1.2-3.4); Absolute Monocyte Count 0.67 10^3/uL (0.1-0.8); Basophils % 1.1 %; Eosinophils % 1.3 %; HCT 39.9 % (36.0-46.0); HGB 13.2 g/dL (11.2-15.7); Immature Grans % 0.2 %; MCHC 33.1 % (32.0-36.0); MCV 97 fL (80-95); MPV 10.1 fL (8.0-11.0); Monocytes % 14.2 %; Neutrophils % 55.2 %; Platelet Count 280 10^3/uL (130-400); RBC 4.12 10^6/uL (3.93-5.22); RDW 13.4 % (11.7-14.6); RDW-SD 48.1 fL; WBC 4.71 10^3/uL (4.4-10.8)
[2024-04-17 10:31] LABS: C-Reactive Protein < 0.50 mg/dL (<or=0.5)
[2024-04-17 10:32] LABS: ESR < 1 mm/hr (0-20)
== END 2024-04-17 09:45 | disposition home or self-care (01) ==
LOC: LOS 09:47
PROVIDERS: PCP Nurse Practitioner Family; Referring Provider Family Medicine; Visit Provider Family Medicine
DX: M79.89 Other specified soft tissue disorders (principal)
CPT/HCPCS: 36415; 85652; 85025; 86140

== ENCOUNTER → 2024-04-17 12:58 | Outpatient (CLI) | payer BC, SELFPAY ==
--- NOTE | 2024-04-17 10:11 | DI.RAD_ITS ---
Exam(s) XR FINGER RT RING EXAM: XR FINGER RT RING CLINICAL HISTORY: M79.89 other specified soft tissue disorders, right ring finger swelling. TECHNIQUE: 2D digital imaging was performed of the right finger. Four views were obtained. PA/AP, oblique, and lateral views were obtained. COMPARISON: CR XR ARTHRITIS SERIES from 02/16/2022 FINDINGS: BONES: No acute fracture is present. No bony destructive lesion is seen. JOINTS: No dislocation present. SOFT TISSUE: There is a question of a faint 2 mm density at the radial aspect of the neck of the prox imal phalanx of the ring finger. The underlying bone appears intact. IMPRESSION: 1. No evidence of acute fracture, dislocation, or subluxation. 2. Question of a faint 2 mm density adjacent to the distal aspect of the proximal phalanx of the ring finger. This may represent a loose body or dystrophic calcification. Please correlate clinically. DATA REPOSITORY: RADIATION DOSE DELIVERED:
== END ==
PROVIDERS: PCP Nurse Practitioner Family; Visit Provider Family Medicine
DX: M79.89 Other specified soft tissue disorders (principal)
CPT/HCPCS: 73140

== ENCOUNTER 2024-07-30 13:11 | Outpatient (REF) | payer BC, SELFPAY ==
--- NOTE | 2024-07-30 13:00 | PAPFT_PTH ---
PATIENT: Elizabeth Elder LOC: [facility] U#:[id number] AGE/SX: 44/F ROOM: RE07/30/[address]: Nataly Hairston NP : 1980 BED: DIS: 07/30/2024 SPEC #: [id number] RECD: 07/30/24 18:13 STATUS: LALY MOTA #: [id number] RUFUS: 07/30/24 13:[address]: Nataly Hairston NP [facility] RECD BY: Suma Andres ENTERED: 07/30/24 18:13 SP TYPE: PAPFT OTHR DR: Ursula Calhoun, CHARGE ENTRY Tissues: 1 - CX/ENDOCX FOR PAP SMEARS Procedures: PAP THIN PREP/[facility] Screening HPV DNA PROBE Comments: [id number] (HPV 16 & 18/45)
== END 2024-07-30 13:12 | disposition home or self-care (01) ==
LOC: LBN 13:11
PROVIDERS: PCP Nurse Practitioner Family; Visit Provider Nurse Practitioner Women's Health
DX: Z01.419 Encounter for gynecological examination (general) (routine) without abnormal findings (principal); Z12.4 Encounter for screening for malignant neoplasm of cervix
CPT/HCPCS: 88142; 87624

== ENCOUNTER 2025-02-21 15:16 | Outpatient (REF) | payer BC, SELFPAY ==
[2025-02-21 13:42] LABS: Abs Immature Grans 0.01 10^3/uL (0.0-0.06); Absolute Basophil Count 0.05 10^3/uL (0.0-0.2); Absolute Lymphocyte Count 1.55 10^3/uL (1.2-3.4); Absolute Monocyte Count 0.65 10^3/uL (0.1-0.8); Absolute Neutrophil Count 3.64 10^3/uL (1.2-6.7); Basophils % 0.8 %; Eosinophils % 1.7 %; HCT 40.2 % (36.0-46.0); HGB 13.5 g/dL (11.2-15.7); Immature Grans % 0.2 %; Lymphocytes % 25.8 %; MCH 32.5 pg (27.0-33.0); MCHC 33.6 % (32.0-36.0); MCV 97 fL (80-95); MPV 11.1 fL (8.0-11.0); Monocytes % 10.8 %; Neutrophils % 60.7 %; Platelet Count 320 10^3/uL (130-400); RBC 4.16 10^6/uL (3.93-5.22); RDW 13.3 % (11.7-14.6); RDW-SD 47.6 fL
[2025-02-21 14:15] LABS: Hemoglobin A1C 5.8 % (<5.7)
[2025-02-21 15:12] LABS: ALT 27 U/L (14-59); AST 19 U/L (15-37); Alkaline Phosphatase 48 U/L (46-116); Anion Gap 5.4 mmol/L (3-11); BUN 10 mg/dL (7-18); Bilirubin, Total 0.5 mg/dL (0.2-1.0); CO2 31.6 mmol/L (21.0-32.0); CREATININE 0.7 mg/dL (0.55-1.02); Calcium 9.3 mg/dL (8.5-10.1); Chloride 106 mmol/L (98-107); Estimated GFR 109.98 (mL/min/1.73m2); Glucose 96 mg/dL (74-106); Potassium 4.3 mmol/L (3.5-5.1); Sodium 143 mmol/L (136-145); Total Protein 7.2 g/dL (6.4-8.2); Vitamin D 25 Total 26 ng/mL (30-100)
[2025-02-22 11:32] LABS: HIV-1/2 Ag & Ab Screen Negative (Negative)
[2025-02-24 12:05] LABS: Hep B Surface Ab Positive (See Note); Hepatitis B Core Antibody Negative (Negative); Hepatitis B Surface Antigen Negative (Negative)
== END 2025-02-21 15:17 | disposition home or self-care (01) ==
LOC: LBN 15:16
PROVIDERS: PCP Nurse Practitioner Family; Visit Provider Nurse Practitioner Family
DX: Z11.59 Encounter for screening for other viral diseases (principal); Z00.00 Encounter for general adult medical examination without abnormal findings; Z11.4 Encounter for screening for human immunodeficiency virus [HIV]
CPT/HCPCS: 80053; 82306; 86704; 86706; 87340; 87389; 83036; 85025

== ENCOUNTER 2025-03-27 01:05 | Outpatient (CLI) | payer BC, SELFPAY ==
--- NOTE | 2025-03-27 08:20 | DI.RAD_ITS ---
Exam(s) RF JOINT INJ. FLUORO GUID RAD EXAM: RF JOINT INJ. FLUORO GUID RAD CLINICAL HISTORY: R HIP PAIN M25.851 RT HIP JOINT DISORDER, IMPINGEMENT RT HIP. The Patient has had persistent right hip pain. Noninvasive measures have been tried. To serve as both diagnostic and t herapeutic, an injection under fluoroscopy was recommended. The risks of the procedure were discusse d with their Orthopedic provider and the patient elected to proceed. TECHNIQUE: 2D and realtime digital imaging was performed. CONTRAST MATERIAL: Water soluble contrast was utilized. COMPARISON: No exams were available for comparison FINDINGS: The Patient was greeted in the fluoroscopy room. The correct side was identified and the consent was reviewed with the patient and was signed. The patient was properly positioned on the fluoroscopy ta ble. The right hipwas then prepped and draped. The right hip injection starting point was identifie d by the bony landmarks and fluoroscopy. The skin and soft tissue in the tract of the injection was anesthetized with 1% Bupivacaine. A spinal needle was then inserted into the right hip joint at the level of the head neck junction of the right femur under fluoroscopic guidance. A small amount of Om nipaque solution was injected to confirm intraarticular placement. Once confirmed, the right hip was injected with 5cc of a solution containing 0.5% Bupivacaiine and 40 mg of Depo-Medrol. A bandaid wa s placed on the injection site. The patient tolerated the procedure well and left the department in good condition. IMPRESSION: Successful right hip injection. RADIATION DOSE DELIVERED: Ka,r=4.97 mGy
[2025-03-27] MEDS: Omnipaque 300 MG/ML 10 ML BTL IJ (15:48)
[2025-03-27] MEDS: Normal Saline - Diluent 50 ML VIAL IJ (15:49)
[2025-03-27] MEDS: Bupivacaine 0.5% Pres-Free 10 ML VIAL IJ (15:50)
[2025-03-27] MEDS: methylPREDNISolone ACETATE 40 MG/ML VIAL IJ (15:55)
== END 2025-03-27 01:25 ==
PROVIDERS: PCP Nurse Practitioner Family; Visit Provider Student in an Organized Health Care Education/Training Program
DX: M25.851 Other specified joint disorders, right hip (principal)
CPT/HCPCS: 20610; 77002; J0665; J1010

== ENCOUNTER 2025-03-27 01:05 | Outpatient (CLI) | payer BC, SELFPAY ==
--- NOTE | 2025-03-27 07:00 | DI.MAMMO_ITS ---
Exam(s) MAMMO SCREENING EXAM: MAMMO SCREENING CLINICAL HISTORY: screening,z12.39 TECHNIQUE: Bilateral full field digital CC and MLO mammographic images were obtained with 3D tomosyn thesis and utilizing computer aided detection (CAD). COMPARISON: Available for comparison. FINDINGS: Masses/Architectural Distortion: No suspicious masses or areas of architectural distortion are presen t. Microcalcifications: No suspicious pleomorphic-type are seen. Skin Thickening/Nipple Retraction: None. IMPRESSION: 1. No significant interval change with no specific features of malignancy noted. 2. Unless there is more urgent need, screening mammography is recommended, as per [employer] guidelines. BI-RADS Category 1 - Negative Breast Density - Category C - The breast are heterogeneously dense, which may obscure small masses. Breast density Category C or D implies that the patient has dense breast tissue. Dense breast tissue can make it harder to find cancer on a mammogram. Dense breast tissue is also associated with an incr eased risk of breast cancer. This information about the result of the mammogram report was provided to the patient to raise their awareness. Use this report when you speak with the patient about their risks for breast cancer, which includes their family history. At that time, you may recommend additional screening tests (Ultrasoun d or MRI) as these tests may add significant information. A negative radiographic report should not delay biopsy if a dominant or clinically suspicious mass is present. Up to ten percent of cancers are not identified on mammography. A negative report may reinforce clinical impression. Adenosis and dense breasts may obscure an underlying neoplasm. False positive reports average 6 to 10%. Patient will receive a letter notifying them of these results.
== END 2025-03-27 01:25 ==
PROVIDERS: PCP Nurse Practitioner Family; Visit Provider Nurse Practitioner Family
DX: Z12.31 Encounter for screening mammogram for malignant neoplasm of breast (principal); R92.333 Mammographic heterogeneous density, bilateral breasts
CPT/HCPCS: 77063; 77067

== ENCOUNTER 2025-06-21 17:54 | Emergency (ER) | payer BC, SELFPAY ==
[2025-06-21 17:59] VITALS: BP 143/83; PULSE 105; RESP 18; TEMP 37; O2SAT 99
--- NOTE | 2025-06-21 18:00 | W.ED.GENAD ---
Discharge Plan Disposition Patient Disposition: Home Discharge Details Clinical Impression: Positive self-administered antigen test for COVID-19 Primary Care Provider: Ursula Calhoun ED Provider: Joel Fields [place] Meds and New Rx's Prescriptions: New Paxlovid 150 mg (6)- 100 mg (5) tablets,dose pack 1 dose pk PO PER PKG DIR Qty: 11 0RF Rx Instructions: 1 dose pk orally per package directions; Continued cod liver oil Capsule 1 cap PO DAILY elderberry tincture See Rx Instructions PO .COMPLEX Rx Instructions: tincture orally; triamcinolone acetonide 0.1 % cream 1 applic topical DAILY PRN (Reason: dermatitis) Qty: 80 0RF cholecalciferol (vitamin D3) [Vitamin D3] 25 mcg (1,000 unit) capsule 25 mcg PO DAILY multivitamin [Daily Multi-Vitamin] .ROUTE Discharge Instructions Additional Instructions: You were seen in the emergency department for your positive self COVID test. A prescription for Paxlovid has been sent to the [facility]. As we discussed if you begin nausea start vomiting or develop any difficulty breathing please return to the emergency department. Otherwise please take these medications as directed and follow-up as needed with your primary care provider next week. HPI General Date/Time Provider Initiated Documentation: 06/21/25 18:00. HPI Narrative: MDM This is a quite well-appearing initially tachycardic but normothermic 45-year-old asplenic female with positive self COVID test for which she will receive prescription for ritonavir-boosted nirmatrelvir given prior successful treatment with similar symptoms. Patient I discussed that ritonavir-boosted nirmatrelvir had some evidence to improve symptommatic patients during early COVID times when patients had not been vaccinated. I advised that given that she had been vaccinated and that this research was performed much earlier in the pandemic that there was not a clear benefit from this medication. Nonetheless given that patient has tolerated this medication in the past I do not feel that she is high risk for complications from another course of ritonavir-boosted nirmatrelvir. I did veterans rehabilitation counselor however that ritonavir-boosted nirmatrelvir was not as widely available as it was in the past. Will attempt to send a course down to [facility] in [place]. In the absence of any significant chest pain I do not feel patient's presentation represents ACS so I did not obtain ECG. Similarly in the absence of hypotension at hypoxia and significant chest pain I did not feel that the patient's presentation represented a PE so I did not feel she required a D-dimer. No pain out of proportion to suggest necrotizing soft tissue infection. Will have patient call me back if she could not get a prescription. Patient is not hypoxic so I do not feel she requires a chest x-ray. She was initially tachycardic but this improved rapidly without intervention so I do not feel that she is septic I do not feel that she requires broad-spectrum antibiotics blood cultures no assessment of lactate. She has not been vomiting to suggest increased risk for acute electrolyte abnormality so I was initially planning on ordering blood work but do not feel she requires assessment of her electrolytes. I did prescribe her with a course of ondansetron to take as needed at home. She had normal renal function when last was assessed earlier this year so I did not feel that she required repeat assessment of her renal function. We discussed that she should return to the ED if she developed shortness of breath could not eat or drink as results of nausea or vomiting or if she does not urinate at least once every 8 hours. She understood her return indications and was discharged with empiric trial of expectant outpatient management. HPI This is a patient with a history of asplenia presenting with symptoms of COVID-19. The patient began experiencing cold-like symptoms on , which persisted into Monday. Upon waking up this morning, she initially felt improved but her condition deteriorated as the day progressed. By around 5:00 PM, she felt significantly unwell and decided to take a COVID-19 test, which returned a strong positive result. She has been self-monitoring for a temperature and has not detected any, although she has felt warmth in her face. She reports no shortness of breath but does feel congested. She is not experiencing any abdominal or chest pain but does report some tightness. She has been feeling slightly nauseous for the past few hours but has been able to keep food down. She has been prescribed Paxlovid for her COVID-19 infection, which she reports as beneficial despite experiencing side effects such as a metallic taste. She speculates that she was sick and by a nephew who recently returned from [place] with URI symptoms. 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 She reports that she had a splenectomy and partial pancreatectomy and cholecystectomy in the setting of a episode of pancreatitis that occurred following her COVID vaccine. She received 2 COVID vaccine doses in total. Exam General: Well-appearing in no acute distress speaking in complete sentences. Head: Normocephalic, atraumatic. Eye: Extraocular eye movements intact. No conjunctival injection. No scleral icterus. Ear, nose, mouth, throat: Grossly normal inspection. Normal voice, handling secretions normally. Neck: Trachea midline. Cardiovascular: Well-perfused distal extremities. Regular rate and rhythm Respiratory: Nonlabored respiration. Clear lungs bilaterally. No wheezing. Gastrointestinal: Nondistended abdomen. Musculoskeletal: No edema. Moving all 4 extremities spontaneously. Skin: Normal for age and race, grossly normal temperature and turgor. No acute rash. Neurologic: Alert and appropriate, no apparent acute deficits. Psychiatric: Mood and manner are appropriate. Grooming and personal hygiene are appropriate. Related Data Home Medications ?Medication ?Instructions ?Recorded ?Confirmed elderberry tincture See Rx Instructions PO .COMPLEX 05/30/22 06/21/25 triamcinolone acetonide 0.1 % 1 applic topical DAILY PRN 02/21/24 06/21/25 topical cream dermatitis #80 grams cod liver oil 1 cap PO DAILY 04/17/24 06/21/25 cholecalciferol (vitamin D3) 25 25 mcg PO DAILY 06/21/25 06/21/25 mcg (1,000 unit) capsule (Vitamin D3) multivitamin .ROUTE 06/21/25 nirmatrelvir 150 mg (6)-ritonavir 1 dose pk PO PER PKG DIR #11 06/21/25 100 mg (5) tablets in a dose pack caplets (Paxlovid) Previous Rx's ?Medication ?Instructions ?Recorded triamcinolone acetonide 0.1 % 1 applic topical DAILY PRN 02/21/24 topical cream dermatitis #80 grams nirmatrelvir 150 mg (6)-ritonavir 1 dose pk PO PER PKG DIR #11 06/21/25 100 mg (5) tablets in a dose pack caplets (Paxlovid) Allergies Allergy/AdvReac Type Severity Reaction Status Date / Time No Known Allergies Allergy Verified 06/21/25 18:07 General ALEC: 3 PFSH All Active Problems (Updated 06/21/25 @ 18:24 by Joel Fields MD) Positive self-administered antigen test for COVID-19 (Acute) History of malignant neoplasm of pancreas (Chronic) S/p subtotal pancreatectomy, 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) Trochanteric bursitis of right hip (Chronic) Tear of right gluteus medius tendon (Chronic) Femoroacetabular impingement of right hip (Chronic) 80 mg Depo-Medrol injection -intra-articular via ultrasound: 06/14/2024 Varicose veins of right lower extremity (Chronic) Prediabetes (Chronic) Vitamin D insufficiency (Chronic) Medical History 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 Brother Asthma Brother No problems noted. Son Cyclic vomiting syndrome Mucopolysaccharidosis type 6A Daughter Mucopolysaccharidosis type 6A Maternal Grandfather Heart disease Maternal Grandmother Breast cancer Macular degeneration Paternal Grandfather Pancreatic cancer Diabetes Paternal Grandmother , Age 91 Twisted intestine/bowl No problems noted. Social History Smoking/Tobacco Use Status: Never Second Hand Exposure: No Smoking risk assessment performed?: Yes Alcohol Intake: never Drug use: Never Substance use type: does not use Caregiver/Support person: No Household members: spouse and children Housing: house Communication Needs: None Do you need help understanding health information?: Never current occupation: homemaker and daycare Pets and animals: Yes Pets and animals: other Details: rabbit Sexually active: Yes Do you think of yourself as: straight/heterosexual Current gender identity: female What is your relationship status?: How often do you talk on the phone with friends or family?: once per week How often do you get together with friends or relatives?: three or more times per week How often do you attend jainism or rastafari services?: 1-3 times per year Do you belong to any clubs or organized social groups?: no Panel score (0-1 are the most socially isolated patients): 2 What type of physical activity do you participate in: walking Duration: 30-45 minutes/day Frequency: daily Skye/Rastafari: Jain Special skye needs: No Seatbelt use: always Helmet use: Yes Helmet use: always Drive intox or ride w/intox local delivery driver: No Do you feel safe at home: Yes Do you feel safe in your relationship?: Yes Female Reproductive History Menstrual control method: condoms History History 2 Para 2 Hx # Term Pregnancies Multiple births Hx # Pregnancies Ectopic pregnancies AB induced Hx Number of Living Children 2 AB spontaneous
[2025-06-21 18:40] VITALS: BP 129/81; BP 143/83; PULSE 105; PULSE 83; RESP 16; RESP 18; RESP 20; TEMP 37; O2SAT 98; O2SAT 99
[2025-06-21 18:51] VITALS: PULSE 83
--- NOTE | 2025-06-22 14:10 | W.ED.FU ---
Date of service: 06/22/25 Time of Service: 14:10 Follow Up Plan: I called the patient at home as unfortunately [facility] was no longer carrying ritonavir-boosted nirmatrelvir. I have requested that the patient call back to the emergency department to let us know if she would like us to try alternate pharmacies. I advised her to return if she develops shortness of breath or had any other concerns. Otherwise advised PCP follow-up. I added that if we did not hear from her we would defer sending her prescription to other pharmacies. 8 PM Patient did not call back during my shift.
== END 2025-06-21 18:40 | disposition home or self-care (01) ==
LOC: ER 20:18
PROVIDERS: Emergency Provider Emergency Medicine; PCP Nurse Practitioner Family
DX: U07.1 COVID-19 (principal)
CPT/HCPCS: 99283 ×2; 80048; 82805; 84703; 85025